=== PATIENT | female | born 1980 | race Hispanic/Latino ===

== ENCOUNTER 2018-03-13 21:14 | Emergency (ER) | payer OTHER ==
[2018-03-14 00:38] LABS: Absolute Lymphocytes (CBC) 3.6 K/uL (0.7-4.9); Absolute Monocytes 0.7 K/uL (0.1-1.3); Absolute Neutrophil 4.8 K/uL (1.8-8.0); Eosinophils % 1.2 % (0-4.4); Hematocrit 40.7 % (36.0-45.0); Lymphocytes % 38.8 % (15.3-44.8); MCH 30.6 pg (27.0-35.0); MCV 89.8 fL (80-100); MPV 7.7 fL (7.6-11.3); Monocytes % 7.2 % (3.3-12.3); RBC Red Blood Cell Count 4.53 M/uL (3.86-4.86)
[2018-03-14 00:42] LABS: Protime INR 1.03
[2018-03-14 00:46] LABS: Bicarbonate 27 mEq/L (21-31); Glucose Level 110 mg/dL (65-120); Potassium 3.6 mEq/L (3.6-5.0); Sodium Level 136 mEq/L (135-145)
[2018-03-14 00:52] LABS: ALT/SGPT 28 IU/L (10-60); AST/SGOT 24 IU/L (10-42); Albumin 4.5 g/dL (3.2-5.5); Alkaline Phosphatase 81 IU/L (42-121); BUN Blood Urea Nitrogen 7 mg/dL (6-20); Bilirubin Direct 0.1 mg/dL (0-0.2); Bilirubin Total 0.6 mg/dL (0.3-1.2); Magnesium 1.8 mg/dL (1.8-2.5); Protein, Total 8.2 g/dL (6.0-8.3)
[2018-03-14 00:59] LABS: Urine Blood 1+ (NEG); Urine Glucose NEGATIVE (NEG); Urine Protein NEGATIVE (NEG)
--- NOTE | 2018-03-14 02:40 | ER ---
Nurse's Notes [facility] Name: Sherron Arita Age: 37 yrs Sex: Female : 1980 Arrival Date: 03/13/2018 Time: 21:15 Bed 20 Private MD: Harsh Valera Diagnosis: Paresthesia of skin;Essential (primary) hypertension Presentation: 03/13 21:54 Presenting complaint: Patient states: she was having tingling to left arm and left side bb of face but now left arm is not feeling tingly instead feels "heavy" pt anchorer equal, face symmetrical, speech clear. Transition of care: patient was not received from another setting of care. Onset of symptoms was March 13, 2018. Initial Sepsis Screen: Does the patient meet any 2 criteria? No. Patient's initial sepsis screen is negative. Does the patient have a suspected source of infection? No. Patient's initial sepsis screen is negative. Care prior to arrival: None. 21:54 Method Of Arrival: Ambulatory bb 21:54 Acuity: KEESHA 3 bb Triage Assessment: 21:57 General: Appears in no apparent distress. Behavior is calm, cooperative. Pain: Denies bb pain. Neuro: Level of Consciousness is awake, alert, obeys commands, Oriented to person, place, time, situation, Electrolysis Operator are equal bilaterally Moves all extremities. Gait is steady, Speech is normal, Facial symmetry appears normal. 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 - Social history:: Smoking status: Patient/guardian denies using tobacco, Patient uses alcohol, but reports only rare drinking. Patient/guardian denies using street drugs. Screenin/19 00:46 Abuse screen: Denies threats or abuse. Denies injuries from another. Nutritional bs1 screening: No deficits noted. Tuberculosis screening: No symptoms or risk factors identified. Fall Risk None identified. Assessment: 03/13 22:30 General: Appears in no apparent distress. uncomfortable, Behavior is cooperative, bs1 anxious. General: Patient came in for left sided numbness on face/jaw, and left arm tingling, patient reports this happening in the past, at the time patient states "My symptoms improved now, I don't have any tingling or numbness in my arm, or jaw/face.". Pain: Denies pain. Neuro: Level of Consciousness is awake, alert, obeys commands, Oriented to person, place, time, situation, Appropriate for age Electrolysis Operator are equal bilaterally Moves all extremities. Gait is steady, Speech is normal, Facial symmetry appears normal, Pupils are PERRLA, Intact. Cardiovascular: Denies chest pain, palpitations, shortness of breath, Heart tones S1 S2 present Capillary refill < 3 seconds Patient's skin is warm and dry. Respiratory: Airway is patent Trachea midline Respiratory effort is even, unlabored, Respiratory pattern is regular, symmetrical, Breath sounds are clear bilaterally. GI: No deficits noted. No signs and/or symptoms were reported involving the gastrointestinal system. : No deficits noted. No signs and/or symptoms were reported regarding the genitourinary system. EENT: No deficits noted. Derm: Skin is intact, Skin is pink, warm \\T\\ dry. Musculoskeletal: Circulation, motion, and sensation intact. Capillary refill < 3 seconds, Range of motion: intact in all extremities. 23:30 Reassessment: Patient appears in no apparent distress at this time. No changes from bs1 previously documented assessment. Patient and/or family updated on plan of care and expected duration. Pain level reassessed. Patient is alert, oriented x 3, equal unlabored respirations, skin warm/dry/pink. Pending lab/CT results. 03/14 00:30 Reassessment: No changes from previously documented assessment. Patient and/or family bs1 updated on plan of care and expected duration. Pain level reassessed. Patient is alert, oriented x 3, equal unlabored respirations, skin warm/dry/pink. 01:44 Reassessment: Patient appears in no apparent distress at this time. Patient denies any bs1 numbness or tingling. Neuro checks wnl. 02:45 Reassessment: Patient appears in no apparent distress at this time. Patient and/or bs1 family updated on plan of care and expected duration. Pain level reassessed. Patient is alert, oriented x 3, equal unlabored respirations, skin warm/dry/pink. Patient to be discharged home. No further needs. Denies any further numbness or tingling. Patient states symptoms have improved. Vital Signs: 03/13 21:57 BP 156 / 96; Pulse 64; Resp 18 S; Temp 98.1(O); Pulse Ox 100% on R/A; Weight 99.34 kg bb (R); Height 5 ft. 2 in. (157.48 cm) (R); Pain 0/10; 22:57 BP 139 / 94; Pulse 66; Resp 17 S; Pulse Ox 98% on R/A; Pain 0/10; bs1 23:57 BP 137 / 87; Pulse 66; Resp 17 S; Pulse Ox 97% on R/A; Pain 0/10; bs1 03/14 00:57 BP 118 / 67; Pulse 67; Resp 17; Pulse Ox 99% on R/A; Pain 0/10; bs1 01:45 BP 122 / 70; Pulse 67; Resp 16; Pulse Ox 100% on R/A; Pain 0/10; bs1 02:45 BP 120 / 68; Pulse 73; Resp 23; Temp 98.0(O); Pulse Ox 100% on R/A; Pain 0/10; bs1 03/13 21:57 Body Mass Index 40.06 (99.34 kg, 157.48 cm) bb NIH Stroke Scale Scores: 02:33 NIHSS Score: 0 ED Course: 03/13 21:15 Patient arrived in ED. am2 21:16 Harsh Valera MD is Private Physician. am2 21:56 Triage completed. bb 21:57 Arm band placed on right wrist. Patient placed. bb 22:36 Khoi Alonso MD is Attending Physician. gs 22:44 Jasmyn Alfonso, RO is Primary Nurse. bs1 03/14 00:07 CT Head Brain wo Cont In Process Unspecified. EDMS 00:15 X-ray completed. Portable x-ray completed in exam room. Patient tolerated procedure bb2 well. 00:16 XRAY Chest (1 view) In Process Unspecified. EDMS 00:22 Inserted saline lock: 20 gauge in left antecubital area, using aseptic technique. bs1 00:47 Patient has correct armband on for positive identification. Bed in low position. Call bs1 light in reach. Side rails up X 1. Pulse ox on. NIBP on. 01:43 No provider procedures requiring assistance completed. bs1 02:39 Harsh Valera MD is Referral Physician. gs 02:49 IV discontinued, bleeding controlled, No redness/swelling at site. Pressure dressing bs1 applied. Administered Medications: No medications were administered Outcome: 02:39 Discharge ordered by . gs 02:49 Discharged to home ambulatory. bs1 02:49 Condition: stable 02:49 Discharge instructions given to patient, Instructed on discharge instructions, follow up and referral plans. Demonstrated understanding of instructions, follow-up care. 02:50 Patient left the ED. bs1 NIH Stroke Scale - NIH Stroke Score Date: 03/14/2018 Time: 02:33 Total Score = 0 1a. Level of Consciousness (LOC) - 0(Alert) 1b. Level of Consciousness (LOC) (Year \\T\\ Age) - 0(Both) 1c. LOC Commands (Open \\T\\ Closes Eyes/Medical Secretary) - 0(Both) 2. Best Gaze (Lateral Gaze Paresis) - 0(Normal) 3. Visual Field Loss - 0(No visual loss) 4. Facial Palsy - 0(Normal) 5a. Left Arm: Motor (10-second hold) - 0(No drift) 5b. Right Arm: Motor (10-second hold) - 0(No drift) 6a. Left Leg: Motor (5-second hold - always test supine) - 0(No drift) 6b. Right Leg: Motor (5-second hold - always test supine) - 0(No drift) 7. Limb Ataxia (finger/nose \\T\\ heel/robles - test with eyes open) - 0(Absent) 8. Sensory Loss (pinprick arms/legs/face) - 0(Normal) 9. Best Language: Aphasia (description/naming/reading) - 0(No aphasia) 10. Dysarthria (speech clarity - read or repeat words) - 0(Normal) 11. Extinction and Inattention (visual/tactile/auditory/spatial/personal) - 0(No abnormality) Initials: Signatures: Dispatcher [employer] EDMigdalia Reagan RN RN bb Moreno, Amanda am2 Starr, Gregory, MD MD gs Bock, Brittany bb2 Salazar, Brittany, RN RN bs1
--- NOTE | 2018-03-14 02:40 | EDPHYS ---
Physician Documentation [facility] Name: Sherron Arita Age: 37 yrs Sex: Female : 1980 Arrival Date: 03/13/2018 Time: 21:15 Bed 20 Private MD: Harsh Valera ED Physician Khoi Alonso HPI: 03/14 02:32 This 37 yrs old Female presents to ER via Ambulatory with complaints of Facial gs Swelling - Numbness, Numbness Of Arm - tingling. 02:32 The patient presents to the emergency department with paresthesias of the left upper gs extremity, left side of the face. Onset: The symptoms/episode began/occurred. 02:33 Onset: The symptoms/episode began/occurred 3 hour(s) ago. Associated signs and gs symptoms: Pertinent negatives: altered mental status, weakness. Severity of symptoms: At their worst the symptoms were moderate in the emergency department the symptoms have resolved and did so just prior to arrival. Current symptoms: Currently, the patient is not experiencing any symptoms. The patient has experienced similar episodes in the past, a few times, and the symptoms today are exactly the same. 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 - Social history:: Smoking status: Patient/guardian denies using tobacco, Patient uses alcohol, but reports only rare drinking. Patient/guardian denies using street drugs. ROS: 03/14 02:33 All other systems are negative. gs Exam: 02:33 Head/Face: Normocephalic, atraumatic. Eyes: Pupils equal round and reactive to light, gs extra-ocular motions intact. Lids and lashes normal. Conjunctiva and sclera are non-icteric and not injected. Cornea within normal limits. Periorbital areas with no swelling, redness, or edema. ENT: Nares patent. No nasal discharge, no septal abnormalities noted. Tympanic membranes are normal and external auditory canals are clear. Oropharynx with no redness, swelling, or masses, exudates, or evidence of obstruction, uvula midline. Mucous membranes moist. Neck: Trachea midline, no thyromegaly or masses palpated, and no cervical lymphadenopathy. Supple, full range of motion without nuchal rigidity, or vertebral point tenderness. No Meningismus. Chest/axilla: Normal chest wall appearance and motion. Nontender with no deformity. No lesions are appreciated. Cardiovascular: Regular rate and rhythm with a normal S1 and S2. No gallops, murmurs, or rubs. Normal PMI, no JVD. No pulse deficits. Respiratory: Lungs have equal breath sounds bilaterally, clear to auscultation and percussion. No rales, rhonchi or wheezes noted. No increased work of breathing, no retractions or nasal flaring. Abdomen/GI: Soft, non-tender, with normal bowel sounds. No distension or tympany. No guarding or rebound. No evidence of tenderness throughout. Back: No spinal tenderness. No costovertebral tenderness. Full range of motion. Skin: Warm, dry with normal turgor. Normal color with no rashes, no lesions, and no evidence of cellulitis. MS/ Extremity: Pulses equal, no cyanosis. Neurovascular intact. Full, normal range of motion. 02:33 Constitutional: The patient appears alert, awake. 02:33 Musculoskeletal/extremity: Circulation is intact in all extremities. 02:33 Neuro: Orientation: is normal, Mentation: is normal, Cranial nerves: CN II- XII are normal as tested, Cerebellar function: no acute changes, normal finger to nose testing, Motor: moves all fours, strength is 5/5 in all extremities, Sensation: no obvious gross deficits, Gait: is steady. 02:41 ECG was reviewed by the Attending Physician. Vital Signs: 03/13 21:57 BP 156 / 96; Pulse 64; Resp 18 S; Temp 98.1(O); Pulse Ox 100% on R/A; Weight 99.34 kg bb (R); Height 5 ft. 2 in. (157.48 cm) (R); Pain 0/10; 22:57 BP 139 / 94; Pulse 66; Resp 17 S; Pulse Ox 98% on R/A; Pain 0/10; bs1 23:57 BP 137 / 87; Pulse 66; Resp 17 S; Pulse Ox 97% on R/A; Pain 0/10; bs1 03/14 00:57 BP 118 / 67; Pulse 67; Resp 17; Pulse Ox 99% on R/A; Pain 0/10; bs1 01:45 BP 122 / 70; Pulse 67; Resp 16; Pulse Ox 100% on R/A; Pain 0/10; bs1 02:45 BP 120 / 68; Pulse 73; Resp 23; Temp 98.0(O); Pulse Ox 100% on R/A; Pain 0/10; bs1 03/13 21:57 Body Mass Index 40.06 (99.34 kg, 157.48 cm) bb NIH Stroke Scale Scores: 02:33 NIHSS Score: 0 gs MDM: 03/13 23:22 Patient medically screened. 03/14 02:33 Data reviewed: vital signs, nurses notes. Special discussion: OFFERED TRANSFER NO NEUROLOGY, PT STATES WILL SEE PCP TOMORROW AND GET MRI AND CAROTID DOPPLERS. ED course: DDX CVA,TIA, PARESTHESIA. 02:40 Counseling: I had a detailed discussion with the patient and/or guardian regarding: the presence of at least one elevated blood pressure reading (>120/80) during this emergency department visit. Special discussion: I have referred the patient to see his PCP for further evaluation of high blood pressure. 03/13 23:37 Order name: Basic Metabolic Panel; Complete Time: 02:19 03/13 23:37 Order name: CBC with Diff; Complete Time: 02:19 03/13 23:37 Order name: LFT's; Complete Time: 02:19 03/13 23:37 Order name: Magnesium; Complete Time: 02:19 03/13 23:37 Order name: PT-INR; Complete Time: 02:19 03/13 23:37 Order name: Troponin (emerg Dept Use Only); Complete Time: 02:19 03/13 23:37 Order name: XRAY Chest (1 view) 03/13 23:37 Order name: EKG; Complete Time: 23:38 03/13 23:37 Order name: Cardiac monitoring; Complete Time: 01:45 03/13 23:37 Order name: EKG - Nurse/Tech; Complete Time: 01:19 03/13 23:37 Order name: IV Saline Lock; Complete Time: 00:49 03/13 23:37 Order name: CT Head Brain wo Cont 03/14 00:50 Order name: Urine Dipstick--Ancillary (enter results); Complete Time: : 2 03/14 00:50 Order name: Urine --Ancillary (enter results); Complete Time: [facility] 03/13 23:37 Order name: Labs collected and sent; Complete Time: 00:49 03/13 23:37 Order name: O2 Per Protocol; Complete Time: : 03/13 23:37 Order name: O2 Sat Monitoring; Complete Time: : 03/13 23:37 Order name: Urine Dipstick-Ancillary (obtain specimen); Complete Time: : 03/13 23:37 Order name: Urine Test (obtain specimen); Complete Time: :03 EC:41 Rate is 66 beats/min. Rhythm is regular. [place] interval is normal. QRS interval is normal. gs T waves are Normal. No ST changes noted. Clinical impression: Normal ECG. Interpreted by me. Administered Medications: No medications were administered Disposition: 03/14/18 02:39 Discharged to Home. Impression: Paresthesia of skin, Essential (primary) hypertension. - Condition is Stable. - Discharge Instructions: Hypertension, Managing Your High Blood Pressure. - Medication Reconciliation Form, Thank You Letter, Antibiotic Education, Prescription Opioid Use form. - Follow up: Harsh Valera MD; When: Today. - Notes: NEED TO SEE PCP TODAY IF ANY ISSUES RETURN TO ED NIH Stroke Scale - NIH Stroke Score Date: 03/14/2018 Time: 02:33 Total Score = 0 1a. Level of Consciousness (LOC) - 0(Alert) 1b. Level of Consciousness (LOC) (Year \T\ Age) - 0(Both) 1c. LOC Commands (Open \T\ Closes Eyes/Collar Starcher) - 0(Both) 2. Best Gaze (Lateral Gaze Paresis) - 0(Normal) 3. Visual Field Loss - 0(No visual loss) 4. Facial Palsy - 0(Normal) 5a. Left Arm: Motor (10-second hold) - 0(No drift) 5b. Right Arm: Motor (10-second hold) - 0(No drift) 6a. Left Leg: Motor (5-second hold - always test supine) - 0(No drift) 6b. Right Leg: Motor (5-second hold - always test supine) - 0(No drift) 7. Limb Ataxia (finger/nose \T\ heel/robles - test with eyes open) - 0(Absent) 8. Sensory Loss (pinprick arms/legs/face) - 0(Normal) 9. Best Language: Aphasia (description/naming/reading) - 0(No aphasia) 10. Dysarthria (speech clarity - read or repeat words) - 0(Normal) 11. Extinction and Inattention (visual/tactile/auditory/spatial/personal) - 0(No abnormality) Initials: Signatures: Dispatcher [employer] Migdalia Akins RN RN Khoi Blanc MD MD gs Salazar, Brittany, RN RN bs1
--- NOTE | 2018-03-14 07:57 | RAD REPORT ---
EXAM DESCRIPTION: Edda Single View03/14/2018 12:16 am CLINICAL HISTORY: Chest pain COMPARISON: August 2017 FINDINGS: The lungs appear clear of acute infiltrate. The heart is normal size IMPRESSION: No acute abnormalities displayed
--- NOTE | 2018-03-14 08:56 | RAD REPORT ---
EXAM DESCRIPTION: CT - Head Brain Wo Cont - 03/14/2018 8:18 am CLINICAL HISTORY: Numbness left arm and face COMPARISON: None. TECHNIQUE: Computed axial tomography of the head was obtained. IV contrast was not requested. All CT scans are performed using dose optimization technique as appropriate and may include automated exposure control or mA/KV adjustment according to patient size. FINDINGS: An intracranial bleed is not seen . The ventricles are normal in caliber. No extra-axial fluid collection is noted. Fluid within the sinuses/ mastoids is not seen. IMPRESSION: No acute intracranial abnormality is seen. If patient's symptoms persist MRI of the bra in would be recommended.
--- NOTE | 2018-03-14 09:14 | EKG ---
Test Date: 2018-03-14 Test Time: 01:02:16 Promotions Executive Producer: HAMZAH MEASUREMENT RESULTS: Intervals: Rate: 66 [place]: 164 QRSD: 76 QT: 414 QTc: 434 Elmer: P: 30 [place]: 164 QRS: -1 T: 7 INTERPRETIVE STATEMENTS: Normal sinus rhythm Normal ECG Compared to ECG 09/14/2017 19:02:25 No significant changes Electronically Signed On 03-14-18 09:13:40 CDT by Blair Doherty
== END 2018-03-14 02:50 | disposition home or self-care (01) ==
LOC: ER 21:14
DX: I10 Essential (primary) hypertension (principal)
CPT/HCPCS: 36415; 70450; 71045; 80048; 80076; 81003; 81025; 83735; 84484; 85025; 85610; 93005; 99284

== ENCOUNTER 2018-08-20 17:02 | Emergency (ER) | payer OTHER ==
[2018-08-20 18:03] LABS: Absolute Lymphocytes (CBC) 2.8 K/uL (0.7-4.9); Absolute Monocytes 0.5 K/uL (0.1-1.3); Absolute Neutrophil 4.2 K/uL (1.8-8.0); MCV 91.8 fL (80-100); MPV 7.5 fL (7.6-11.3); Monocytes % 6.5 % (3.3-12.3); Protime INR 0.98; RBC Red Blood Cell Count 4.47 M/uL (3.86-4.86)
[2018-08-20 18:22] LABS: ALT/SGPT 26 U/L (12-78); AST/SGOT 20 U/L (15-37); Albumin 4.4 g/dL (3.4-5.0); Alkaline Phosphatase 109 U/L (45-117); BUN Blood Urea Nitrogen 6 mg/dL (7-18); Bicarbonate 28 mmol/L (21-32); Bilirubin Direct 0.2 mg/dL (0-0.2); Bilirubin Total 0.8 mg/dL (0.2-1.0); Glucose Level 94 mg/dL (74-106); Magnesium 2.2 mg/dL (1.8-2.4); NT PRO-BNP 28 pg/mL (<125); Potassium 3.8 mmol/L (3.5-5.1); Protein, Total 8.5 g/dL (6.4-8.2); Sodium Level 137 mmol/L (136-145); Troponin (Emerg Dept Use Only) < 0.02 ng/mL (0.0-0.045)
--- NOTE | 2018-08-20 18:23 | RAD REPORT ---
EXAM DESCRIPTION: CT - Head Brain Wo Cont - 08/20/2018 5:58 pm CLINICAL HISTORY: Left-sided facial numbness and tingling, left arm and leg numbness and tingling, f acial droop COMPARISON: February 2018 TECHNIQUE: Axial 5 mm thick images of the head were obtained without IV contrast. All CT scans are performed using dose optimization technique as appropriate and may include automated exposure control or mA/KV adjustment according to patient size. FINDINGS: No intracranial hemorrhage, mass, edema or shift of mid-line structures. No acute infarcti on changes seen. No abnormal extra-axial fluid collections. Ventricles are normal. Mastoid air cells and visualized portions of the paranasal sinuses are clear. No acute bony findings. No significant change from comparison. IMPRESSION: Negative non-contrast CT head examination.
--- NOTE | 2018-08-20 18:24 | RAD REPORT ---
EXAM DESCRIPTION: RAD - Chest Single View - 08/20/2018 5:53 pm CLINICAL HISTORY: Shortness of breath, left-sided weakness COMPARISON: March 14 TECHNIQUE: AP portable chest image was obtained 1750 hours . FINDINGS: Lungs are clear. Heart and vasculature are normal. No measurable pleural effusion and no p neumothorax. No gross bony abnormality seen. No acute aortic findings suspected. IMPRESSION: No acute cardiopulmonary process. No significant interval change.
[2018-08-20] MEDS ORDERED: ASPIRIN 81 MG CHEWABLE TABLET ONE (18:49)
--- NOTE | 2018-08-20 19:10 | RAD REPORT ---
EXAM DESCRIPTION: US - CP - 08/20/2018 6:24 pm CLINICAL HISTORY: Left-sided facial numbness, stroke-like symptoms COMPARISON: None. TECHNIQUE: Real-time sonographic evaluation of both carotid systems was performed. Grayscale and Dop pler interrogation was performed with waveform tracing bilaterally. FINDINGS: Normal high resistance waveforms are noted in both external carotid arteries. The common c arotid arteries and internal carotid arteries show normal low resistance waveforms. No significant plaque formation is seen. Peak systolic and end diastolic velocity values and the ICA/ CCA ratios are in the non-hemodynamically significant range. Antegrade flow seen in both vertebral arteries. Velocity values and ratios were recorded and are retained in the patient's imaging records. IMPRESSION: No significant atherosclerotic changes noted. No evidence of a hemodynamically significant stenosis.
--- NOTE | 2018-08-20 19:19 | ER ---
Nurse's Notes [facility] Name: Sherron Arita Age: 38 yrs Sex: Female : 1980 Arrival Date: 08/20/2018 Time: 17:03 Bed 26 Private MD: Harsh Valera Diagnosis: Paresthesia of skin-Left side of face Presentation: 08/20 17:09 Presenting complaint: Patient states: Numbness and tingling to left side of face, left hb arm, and left leg that started at 4pm today. 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 Transition of care: patient was not received from another setting of care. Onset of symptoms was August 20, 2018 at 16:00. Risk Assessment: Do you want to hurt yourself or someone else? Patient reports no desire to harm self or others. 17:09 Method Of Arrival: Ambulatory hb 17:09 Acuity: KEESHA 3 hb 17:39 Initial Sepsis Screen: Does the patient meet any 2 criteria? No. Patient's initial la1 sepsis screen is negative. Does the patient have a suspected source of infection? No. Patient's initial sepsis screen is negative. Care prior to arrival: None. Historical: - Allergies: 17:11 No Known Allergies; hb - PMHx: 17:11 None; hb - PSHx: 17:11 ; hb - Immunization history:: Adult Immunizations up to date. - Social history:: Smoking status: Patient/guardian denies using tobacco. - Ebola Screening: : No symptoms or risks identified at this time. Screenin:21 Abuse screen: Denies threats or abuse. Nutritional screening: No deficits noted. la1 Tuberculosis screening: No symptoms or risk factors identified. Fall Risk None identified. 17:39 The patient has not been NPO before screening. The patient is alert, able to follow la1 commands. The patient does not exhibit slurred or garbled speech The patient is not exhibiting difficulty speaking. The patient does not exhibit difficulty understanding words. The patient is able to swallow own secretions with no drooling or need for suction. Patient tolerated one teaspoon of water. No drooling, immediate coughing, gurgling, or clearing of the throat was noted. The patient tolerated 90mL of water. No drooling, immediate coughing, gurgling, or clearing of the throat was noted. The patient passed the bedside swallow screening. Oral medications may be given as ordered. Contact Physician for further diet orders. Provider notified of bedside swallow screening results: Derek MCALLISTER. Assessment: 17:22 General: Appears in no apparent distress. Behavior is calm, cooperative. Pain: Denies la1 pain. Neuro: Level of Consciousness is awake, alert, obeys commands, Oriented to person, place, time, situation. Neuro: Lineman are equal bilaterally weak bilaterally Speech is normal, Facial symmetry appears normal, Pupils are PERRLA. Cardiovascular: Capillary refill < 3 seconds. Respiratory: Airway is patent Respiratory effort is even, unlabored, Respiratory pattern is regular, symmetrical. GI: No signs and/or symptoms were reported involving the gastrointestinal system. : No signs and/or symptoms were reported regarding the genitourinary system. 18:54 Reassessment: Pt refused MRI. la1 19:30 Reassessment: Patient appears in no apparent distress at this time. Patient is alert, aa1 oriented x 3, equal unlabored respirations, skin warm/dry/pink. Discussed d/c \T\ f/u instructions with pt \T\ family; denies questions or concerns at this time Patient states feeling better. Vital Signs: 17:07 BP 160 / 83; Pulse 73; Resp 14; Temp 97.8; Pulse Ox 100% on R/A; Pain 0/10; hb 18:58 BP 128 / 81; Pulse 73; Resp 18; Pulse Ox 100% on R/A; mg2 NIH Stroke Scale Scores: 17:21 NIHSS Score: 0 la1 ED Course: 17:03 Patient arrived in ED. sb2 17:04 Harsh Valera MD is Private Physician. sb2 17:11 Triage completed. hb 17:11 Arm band placed on right wrist. hb 17:15 Yury Brooks, RO is Primary Nurse. la1 17:22 Derek Perez PA is PHCP. cp 17:22 Khoi Alonso MD is Attending Physician. cp 17:22 Bed in low position. Call light in reach. la1 17:53 EKG done, by life science technician. reviewed by Derek MCALLISTER. sm3 17:54 XRAY Chest (1 view) In Process Unspecified. EDMS 17:56 Inserted saline lock: 20 gauge in right antecubital area, using aseptic technique. la1 Blood collected. 17:59 CT Head Brain wo Cont In Process Unspecified. EDMS 18:24 US Carotid Artery Bilateral In Process Unspecified. EDMS 19:17 Gregory Keane MD is Referral Physician. cp 19:30 No provider procedures requiring assistance completed. IV discontinued, intact, aa1 bleeding controlled, No redness/swelling at site. Pressure dressing applied. Administered Medications: 18:45 Drug: Aspirin Chewable Tablet 324 mg Route: PO; mg2 19:30 Follow up: Response: No adverse reaction aa1 Outcome: 19:18 Discharge ordered by MD. cp 19:30 Discharged to home ambulatory, with family. aa1 19:30 Condition: good 19:30 Discharge instructions given to patient, Instructed on discharge instructions, follow up and referral plans. medication usage, Demonstrated understanding of instructions, follow-up care, medications. 19:32 Patient left the ED. aa1 NIH Stroke Scale - NIH Stroke Score Date: 08/20/2018 Time: 17:21 Total Score = 0 1a. Level of Consciousness (LOC) - 0(Alert) 1b. Level of Consciousness (LOC) (Year \T\ Age) - 0(Both) 1c. LOC Commands (Open \T\ Closes Eyes/Scientist Propagator) - 0(Both) 2. Best Gaze (Lateral Gaze Paresis) - 0(Normal) 3. Visual Field Loss - 0(No visual loss) 4. Facial Palsy - 0(Normal) 5a. Left Arm: Motor (10-second hold) - 0(No drift) 5b. Right Arm: Motor (10-second hold) - 0(No drift) 6a. Left Leg: Motor (5-second hold - always test supine) - 0(No drift) 6b. Right Leg: Motor (5-second hold - always test supine) - 0(No drift) 7. Limb Ataxia (finger/nose \T\ heel/robles - test with eyes open) - 0(Absent) 8. Sensory Loss (pinprick arms/legs/face) - 0(Normal) 9. Best Language: Aphasia (description/naming/reading) - 0(No aphasia) 10. Dysarthria (speech clarity - read or repeat words) - 0(Normal) 11. Extinction and Inattention (visual/tactile/auditory/spatial/personal) - 0(No abnormality) Initials: la1 Signatures: Dispatcher [employer] Celine Martínez RN RN aa1 Yury Brooks RN RN la1 Derek Perez PA PA cp Baxter, Heather, RN RN Ginna Velazquez 2 Arthur Mac RN RN [facility] Mariana Antony 3
--- NOTE | 2018-08-20 19:19 | EDPHYS ---
Physician Documentation [facility] Name: Sherron Arita Age: 38 yrs Sex: Female : 1980 Arrival Date: 08/20/2018 Time: 17:03 Bed 26 Private MD: Harsh Valera ED Physician Khoi Alonso HPI: 08/20 17:35 This 38 yrs old Female presents to ER via Ambulatory with complaints of cp Numbness Of Face, TINGLING. 17:35 The patient's problem is reported as paresthesias, in left side of face. Onset: The cp symptoms/episode began/occurred today, at 16:00. Duration: The episode is continuous. Associated signs and symptoms: Pertinent negatives: blurred vision, chest pain, headache, palpitations, seizure, weakness. Severity of symptoms: in the emergency department the symptoms have improved moderately. 17:35 Patient's baseline: Neuro: alert and fully oriented, Motor: no deficits, Ambulation: cp walks without assistance, Speech: normal. Historical: - Allergies: 17:11 No Known Allergies; hb - PMHx: 17:11 None; hb - PSHx: 17:11 ; hb - Immunization history:: Adult Immunizations up to date. - Social history:: Smoking status: Patient/guardian denies using tobacco. - Ebola Screening: : No symptoms or risks identified at this time. ROS: 17:40 Constitutional: Negative for body aches, chills, fever, poor PO intake. cp 17:40 Eyes: Negative for injury, pain, redness, and discharge. cp 17:40 ENT: Negative for drainage from ear(s), ear pain, sore throat, difficulty swallowing, difficulty handling secretions. 17:40 Cardiovascular: Negative for chest pain, edema, palpitations. 17:40 Respiratory: Negative for cough, shortness of breath, wheezing. 17:40 Abdomen/GI: Negative for abdominal pain, nausea, vomiting, and diarrhea, black/tarry stool, rectal bleeding. 17:40 Back: Negative for pain at rest, pain with movement. 17:40 : Negative for urinary symptoms. 17:40 Skin: Negative for cellulitis, rash. 17:40 Neuro: Positive for tingling, of the left side of face, Negative for altered mental status, headache, syncope, near syncope, visual changes, weakness. 17:40 All other systems are negative. Exam: 17:44 ECG was reviewed by the Attending Physician. cp 17:47 Constitutional: The patient appears in no acute distress, alert, awake, cp non-diaphoretic, non-toxic, well developed, well nourished. 17:47 Chest/axilla: Normal chest wall appearance and motion. Nontender with no deformity. cp No lesions are appreciated. 17:47 Head/face: Exam is negative for obvious evidence of injury or deformity, erythema, swelling, tenderness. 17:47 Eyes: Periorbital structures: appear normal, Pupils: equal, round, and reactive to light and accomodation, Extraocular movements: intact throughout, Conjunctiva: normal, no exudate, no injection, Sclera: no appreciated abnormality, Lids and lashes: appear normal, bilaterally. 17:47 ENT: External ear(s): are unremarkable, Ear canal(s): are normal, clear, TM's: bulging, is not appreciated, bilaterally, dullness, bilaterally, erythema, is not appreciated, bilaterally, Nose: is normal, Mouth: Lips: moist, Oral mucosa: pink and intact, moist, Posterior pharynx: is normal, airway is patent, no erythema, no exudate, Voice: is normal. 17:47 Neck: External neck: is normal, ROM/movement: is normal, is supple, without pain, no range of motions limitations, no meningismus, no nuchal rigidity. 17:47 Cardiovascular: Rate: normal, Rhythm: regular, Pulses: Pulses are 2+ in right radial artery and left radial artery. Edema: is not appreciated, JVD: is not appreciated. 17:47 Respiratory: the patient does not display signs of respiratory distress, Respirations: normal, no use of accessory muscles, no retractions, no splinting, no tachypnea, labored breathing, is not present, Breath sounds: are clear throughout, no decreased breath sounds, no stridor, no wheezing. 17:47 Abdomen/GI: Inspection: abdomen appears normal, Bowel sounds: active, all quadrants, Palpation: abdomen is soft and non-tender, in all quadrants. 17:47 Skin: cellulitis, is not appreciated, no rash present. 17:47 Neuro: Orientation: to person, place \T\ time. Mentation: lucid, able to follow commands, Cranial nerves: CN II- XII are normal as tested, visual samson are intact. Cerebellar function: Romberg testing is negative, normal finger to nose testing, heel to robles testing is normal, Motor: moves all fours, strength is normal, Sensation: tingling, that is mild, of the left side of face. 18:33 Radiologist reports: no acute findings cp Vital Signs: 17:07 BP 160 / 83; Pulse 73; Resp 14; Temp 97.8; Pulse Ox 100% on R/A; Pain 0/10; hb 18:58 BP 128 / 81; Pulse 73; Resp 18; Pulse Ox 100% on R/A; mg2 NIH Stroke Scale Scores: 17:21 NIHSS Score: 0 la1 MDM: 17:31 Patient medically screened. cp 17:50 Differential diagnosis: CVA, TIA, metabolic disorder, drug effects, electrolyte cp abnormality. 18:30 Refusal of service: The patient/guardian displays adequate decision making capability cp and despite a detailed discussion of alternatives, benefits, risks, and consequences refuses: MRI of brain. 19:15 ED course: VSS. Discussed results of labs, negative head CT and carotid US. No cp neurology available for consult and patient declines transfer to another facility for continued care. Will discharge to home for continued monitoring. Recommend baby ASA daily and f/u with neurology. 19:17 Data reviewed: vital signs, nurses notes, lab test result(s), EKG, radiologic studies, cp CT scan, ultrasound, and as a result, I will discharge patient. 19:17 Counseling: I had a detailed discussion with the patient and/or guardian regarding: the cp historical points, exam findings, and any diagnostic results supporting the discharge/admit diagnosis, the presence of at least one elevated blood pressure reading (>120/80) during this emergency department visit, lab results, radiology results, the need for outpatient follow up, a family practitioner, a neurologist, to return to the emergency department if symptoms worsen or persist or if there are any questions or concerns that arise at home. 08/20 17:33 Order name: Basic Metabolic Panel; Complete Time: 18:25 cp 08/20 17:33 Order name: CBC with Diff; Complete Time: 18:25 cp 08/20 17:33 Order name: LFT's; Complete Time: 18:25 cp 08/20 17:33 Order name: Magnesium; Complete Time: 18:25 cp 08/20 17:33 Order name: NT PRO-BNP; Complete Time: 18:25 08/20 17:33 Order name: PT-INR; Complete Time: 18:25 08/20 17:33 Order name: CT Head Brain wo Cont; Complete Time: 18:25 08/20 18:25 Interpretation: Report reviewed. 08/20 17:33 Order name: Troponin (emerg Dept Use Only); Complete Time: 18:25 08/20 17:33 Order name: XRAY Chest (1 view); Complete Time: 18:25 08/20 17:33 Order name: EKG; Complete Time: 17:34 08/20 17:33 Order name: Cardiac monitoring; Complete Time: 18:45 08/20 17:36 Order name: US Carotid Artery Bilateral; Complete Time: 19:12 08/20 17:33 Order name: EKG - Nurse/Tech; Complete Time: 17:39 08/20 17:33 Order name: IV Saline Lock; Complete Time: 18:10 08/20 17:33 Order name: Labs collected and sent; Complete Time: 18:10 08/20 17:33 Order name: O2 Per Protocol; Complete Time: 17:39 cp 08/20 17:33 Order name: O2 Sat Monitoring; Complete Time: 17:39 cp EC:44 Rate is 66 beats/min. Rhythm is regular. OH interval is normal. QRS interval is normal. cp QT interval is normal. T waves are Flattened in lead aVF. Interpreted by me. Reviewed by me. Administered Medications: 18:45 Drug: Aspirin Chewable Tablet 324 mg Route: PO; mg2 19:30 Follow up: Response: No adverse reaction aa1 Disposition: 08/20/18 19:18 Discharged to Home. Impression: Paresthesia of skin - Left side of face. - Condition is Stable. - Discharge Instructions: Paresthesia, Aspirin and Your Heart. - Medication Reconciliation Form, Thank You Letter, Antibiotic Education, Prescription Opioid Use form. - Follow up: Gregory Keane MD; When: 1 - 2 days; Reason: Recheck today's complaints. - Problem is new. - Symptoms have improved. - Notes: take 1 baby aspirin daily NIH Stroke Scale - NIH Stroke Score Date: 08/20/2018 Time: 17:21 Total Score = 0 1a. Level of Consciousness (LOC) - 0(Alert) 1b. Level of Consciousness (LOC) (Year \T\ Age) - 0(Both) 1c. LOC Commands (Open \T\ Closes Eyes/Change Manager) - 0(Both) 2. Best Gaze (Lateral Gaze Paresis) - 0(Normal) 3. Visual Field Loss - 0(No visual loss) 4. Facial Palsy - 0(Normal) 5a. Left Arm: Motor (10-second hold) - 0(No drift) 5b. Right Arm: Motor (10-second hold) - 0(No drift) 6a. Left Leg: Motor (5-second hold - always test supine) - 0(No drift) 6b. Right Leg: Motor (5-second hold - always test supine) - 0(No drift) 7. Limb Ataxia (finger/nose \T\ heel/robles - test with eyes open) - 0(Absent) 8. Sensory Loss (pinprick arms/legs/face) - 0(Normal) 9. Best Language: Aphasia (description/naming/reading) - 0(No aphasia) 10. Dysarthria (speech clarity - read or repeat words) - 0(Normal) 11. Extinction and Inattention (visual/tactile/auditory/spatial/personal) - 0(No abnormality) Initials: la1 Signatures: Dispatcher [employer] Celine Martínez RN RN aa1 Derek Perez PA PA cp Keisha Rose RN RN Arthur Mac RN RN mg2 Corrections: (The following items were deleted from the chart) 19:13 17:36 MR STROKE PROTOCOL+MRI.RAD.BRZ ordered. [facility] 19:32 19:18 08/20/2018 19:18 Discharged to Home. Impression: Paresthesia of skin - aa1 Left side of face. Condition is Stable. Forms are Medication Reconciliation Form, Thank You Letter, Antibiotic Education, Prescription Opioid Use. Follow up: Gregory Keane; When: 1 - 2 days; Reason: Recheck today's complaints. Problem is new. Symptoms have improved. cp
--- NOTE | 2018-08-21 09:46 | EKG ---
Test Date: 2018-08-20 Test Time: 17:42:08 X Ray Technologist: HAI MEASUREMENT RESULTS: Intervals: Rate: 66 MA: 160 QRSD: 76 QT: 412 QTc: 431 [place]: P: 27 MA: 160 QRS: 1 T: 6 INTERPRETIVE STATEMENTS: Normal sinus rhythm Normal ECG Compared to ECG 03/14/2018 01:02:16 No significant changes Electronically Signed On 08-21-18 09:45:37 CDT by Matias Byrnes
== END 2018-08-20 19:32 | disposition home or self-care (01) ==
LOC: ER 17:02
DX: R20.2 Paresthesia of skin (principal)
CPT/HCPCS: 36415; 70450; 71045; 80048; 80076; 83735; 83880; 84484; 85025; 85610; 93005; 93880; 99284

== ENCOUNTER 2019-07-31 15:50 | Emergency (ER) | payer OTHER ==
[2019-07-31 17:18] LABS: Basophils % 0.9 % (0-1.3); Hematocrit 39.4 % (36.0-45.0); Lymphocytes % 31.7 % (15.3-44.8); MPV 7.6 fL (7.6-11.3); RBC Red Blood Cell Count 4.34 M/uL (3.86-4.86)
--- NOTE | 2019-07-31 17:32 | RAD REPORT ---
EXAM DESCRIPTION: RAD - Chest Single View - 07/31/2019 5:23 pm CLINICAL HISTORY: hypertension Chest pain. COMPARISON: Chest Single View dated 08/20/2018; Chest Single View dated 03/14/2018; Chest Single View dated 09/14/2017 FINDINGS: Portable technique limits examination quality. The lungs are grossly clear. The heart is normal in size. No displaced fractures. IMPRESSION: No acute intrathoracic process suspected.
[2019-07-31 17:34] LABS: BUN Blood Urea Nitrogen 8 mg/dL (7-18); Bicarbonate 27 mmol/L (21-32); Glucose Level 94 mg/dL (74-106); Potassium 3.8 mmol/L (3.5-5.1); Sodium Level 139 mmol/L (136-145)
--- NOTE | 2019-07-31 17:46 | ER ---
Nurse's Notes [facility] Name: Sherron Arita Age: 38 yrs Sex: Female : 1980 Arrival Date: 07/31/2019 Time: 15:53 Bed 15 Private MD: Harsh Valera Diagnosis: Hypertension Presentation: 07/31 16:08 Presenting complaint: Patient states: my blood pressure has been up lately, it was high ch on Sunday. today i have felt tired, numbness in my tongue, my shins feel hot and tingling, and sometimes my vision is spotty. yesterday I went home early because I was not feeling well. at [facility] the nurse said it was 172/98. Transition of care: patient was not received from another setting of care. Onset of symptoms was July 31, 2019 at 15:20. Risk Assessment: Do you want to hurt yourself or someone else? Patient reports no desire to harm self or others. Initial Sepsis Screen: Does the patient meet any 2 criteria? No. Patient's initial sepsis screen is negative. Does the patient have a suspected source of infection? No. Patient's initial sepsis screen is negative. Care prior to arrival: None. 16:08 Method Of Arrival: Ambulatory 16:08 Acuity: KEESHA 3 ch Triage Assessment: 16:13 General: Appears in no apparent distress. comfortable, Behavior is calm, cooperative, ch appropriate for age. Pain: Denies pain. Neuro: Reports spotty vision, hotness and fatigue. tingling burning in shins.. TECHNOLOGY LEAD: 18:05 LMP N/A - control method jl7 Historical: - Allergies: 16:13 No Known Allergies; ch - Home Meds: 16:13 clonazepam 0.25 mg Oral TbDL 1 tab as needed [Active]; anti inflammatory [Active]; ch diclofenac oral oral [Active]; - PMHx: 16:13 Anxiety; - PSHx: 16:13 ; - Immunization history:: Adult Immunizations up to date, Last tetanus immunization: up to date Flu vaccine is not up to date. - Social history:: Smoking status: Patient/guardian denies using tobacco, Patient/guardian denies using alcohol, street drugs. - Ebola Screening: : Patient negative for fever greater than or equal to 101.5 degrees Fahrenheit, and additional compatible Ebola Virus Disease symptoms Patient denies exposure to infectious person Patient denies travel to an Ebola-affected area in the 21 days before illness onset No symptoms or risks identified at this time. - Family history:: not pertinent. - Hospitalizations: : No recent hospitalization is reported. Screenin:36 Abuse screen: Denies threats or abuse. Denies injuries from another. Nutritional jl7 screening: No deficits noted. Tuberculosis screening: No symptoms or risk factors identified. Fall Risk IV access (20 points). Total Callahan Fall Scale indicates No Risk (0-24 pts). Assessment: 16:40 General: Appears in no apparent distress. uncomfortable, Behavior is calm, cooperative, jl7 appropriate for age. Pain: Denies pain. Neuro: Level of Consciousness is awake, alert, obeys commands, Oriented to person, place, time, situation. Cardiovascular: Patient's skin is warm and dry. Respiratory: Airway is patent Respiratory effort is even, unlabored, Respiratory pattern is regular, symmetrical. Derm: Skin is pink, warm \T\ dry. 17:40 Reassessment: Patient appears in no apparent distress at this time. Patient and/or jl7 family updated on plan of care and expected duration. Pain level reassessed. Patient is alert, oriented x 3, equal unlabored respirations, skin warm/dry/pink. Patient denies pain at this time. Vital Signs: 16:13 BP 143 / 89; Pulse 77; Resp 19; Temp 98.3; Pulse Ox 99% on R/A; Weight 101.6 kg; Height 5 ft. 2 in. (157.48 cm); Pain 0/10; 17:36 BP 128 / 74; Pulse 77; Resp 16 S; Pulse Ox 97% on R/A; jl7 16:13 Body Mass Index 40.97 (101.60 kg, 157.48 cm) ED Course: 15:53 Patient arrived in ED. rg4 15:53 Harsh Valera MD is Private Physician. rg4 16:10 Triage completed. ch 16:13 Arm band placed on right wrist. Patient placed in an exam room, on a stretcher. ch 16:25 Daniele Owen MD is Attending Physician. rn 16:39 Tonio Botello RN is Primary Nurse. jl7 17:00 Initial lab(s) drawn, by sd, sent to lab. Inserted saline lock: 20 gauge in right jl7 antecubital area, using aseptic technique. Blood collected. 17:01 EKG done, by optomechanical technician. reviewed by Daniele Owen MD. 3 17:26 XRAY Chest (1 view) In Process Unspecified. EDMS 17:36 Patient has correct armband on for positive identification. Placed in gown. Bed in low jl7 position. Call light in reach. Side rails up X 1. Pulse ox on. NIBP on. 18:05 No provider procedures requiring assistance completed. IV discontinued, intact, jl7 bleeding controlled, No redness/swelling at site. Pressure dressing applied. Administered Medications: No medications were administered Outcome: 17:45 Discharge ordered by . rn 18:05 Discharged to home ambulatory. jl7 18:05 Condition: stable 18:05 Discharge instructions given to patient, Instructed on discharge instructions, follow up and referral plans. Demonstrated understanding of instructions, follow-up care. 18:06 Patient left the ED. jl7 Signatures: Dispatcher [employer] EDOK Sherron Amador, RN Daniele Sarmiento ch, MD MD rn Garcia, Rubi rg4 Tonio Botello RN RN jl7 Mariana Antony 3
--- NOTE | 2019-07-31 17:47 | EDPHYS ---
Physician Documentation [facility] Name: Sherron Arita Age: 38 yrs Sex: Female : 1980 Arrival Date: 07/31/2019 Time: 15:53 Bed 15 Private MD: Harsh Valera ED Physician Daniele Owen HPI: 07/31 16:44 This 38 yrs old Female presents to ER via Ambulatory with complaints of High rn Blood Pressure. 16:44 The patient has elevated blood pressure and discovered this work. Onset: The rn symptoms/episode began/occurred at an unknown time. Modifying factors:. Severity of symptoms: At its worst the blood pressure was 170 mm Hg. The patient has experienced similar episodes in the past. Reports has had high blood pressure "for some time" able to manage with diet and weight loss, but then gained weight back, never on meds, reports has been high recently, had some chest discomfort yesterday, but none today, + flushing feeling and posterior headache, that is also resolved today. No fever/cough/sob/abd pain/vomiting. No focal neuro complaints. States sees PCP Sunday but hasn't had time to do her normal bloodwork before visit, hoping she can do it here.. 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 - Social history:: Smoking status: Patient/guardian denies using tobacco, Patient/guardian denies using alcohol, street drugs. - Ebola Screening: : Patient negative for fever greater than or equal to 101.5 degrees Fahrenheit, and additional compatible Ebola Virus Disease symptoms Patient denies exposure to infectious person Patient denies travel to an Ebola-affected area in the 21 days before illness onset No symptoms or risks identified at this time. - Family history:: not pertinent. - Hospitalizations: : No recent hospitalization is reported. ROS: 16:46 Constitutional: Negative for fever, chills, and weight loss, Eyes: Negative for injury, rn pain, redness, and discharge, Neck: Negative for injury, pain, and swelling, Cardiovascular: Negative for palpitations, and edema, Respiratory: Negative for shortness of breath, cough, wheezing, and pleuritic chest pain, Abdomen/GI: Negative for abdominal pain, nausea, vomiting, diarrhea, and constipation, MS/Extremity: Negative for injury and deformity, Skin: Negative for injury, rash, and discoloration, Neuro: Negative for weakness, numbness, tingling, and seizure. Exam: 16:46 Constitutional: This is a well developed, well nourished patient who is awake, alert, rn and in no acute distress. Head/Face: Normocephalic, atraumatic. Eyes: Pupils equal round and reactive to light, extra-ocular motions intact. Lids and lashes normal. Conjunctiva and sclera are non-icteric and not injected. Cornea within normal limits. Periorbital areas with no swelling, redness, or edema. Neck: Trachea midline, no thyromegaly or masses palpated, and no cervical lymphadenopathy. Supple, full range of motion without nuchal rigidity, or vertebral point tenderness. No Meningismus. Cardiovascular: Regular rate and rhythm. No pulse deficits. Respiratory: Lungs have equal breath sounds bilaterally, clear to auscultation. No increased work of breathing, no retractions or nasal flaring. Abdomen/GI: soft, non-tender MS/ Extremity: Pulses equal, no cyanosis. Neurovascular intact. Full, normal range of motion. Equal circumference. Neuro: Awake and alert, GCS 15, oriented to person, place, time, and situation. Cranial nerves II-XII grossly intact. Motor strength 5/5 in all extremities. Sensory grossly intact. Cerebellar exam normal. 17:18 ECG was reviewed by the Attending Physician. rn Vital Signs: 16:13 BP 143 / 89; Pulse 77; Resp 19; Temp 98.3; Pulse Ox 99% on R/A; Weight 101.6 kg; Height ch 5 ft. 2 in. (157.48 cm); Pain 0/10; 17:36 BP 128 / 74; Pulse 77; Resp 16 S; Pulse Ox 97% on R/A; jl7 16:13 Body Mass Index 40.97 (101.60 kg, 157.48 cm) ch MDM: 16:25 Patient medically screened. rn 17:43 Differential diagnosis: hypertensive crisis, Malignant HTN. Data reviewed: vital signs, rn nurses notes, lab test result(s), EKG, radiologic studies, plain films, and as a result, I will discharge patient. Counseling: I had a detailed discussion with the patient and/or guardian regarding: the historical points, exam findings, and any diagnostic results supporting the discharge/admit diagnosis, lab results, radiology results, the need for outpatient follow up, to return to the emergency department if symptoms worsen or persist or if there are any questions or concerns that arise at home. Response to treatment: the patient's symptoms have markedly improved after treatment, and as a result, I will discharge patient. Special discussion: I have referred the patient to see his PCP for further evaluation of high blood pressure. I discussed with the patient/guardian in detail that at this point there is no indication for admission to the hospital. It is understood, however, that if the symptoms persist or worsen the patient needs to return immediately for re-evaluation. Based on the history and exam findings, there is no indication for further emergent testing or inpatient evaluation. I discussed with the patient/guardian the need to see the primary care provider for further evaluation of the symptoms. ED course: BP improved to 128/74, normal neuro exam, neg labs, normal ecg and cxr. Recommend pcp f/u which she has appt on Sunday, and BP diary for data collection for pcp. . 17:45 Test interpretation: by ED physician or midlevel provider: ECG, plain radiologic rn studies, CXR neg for pneumothorax or acute infiltrate. 07/31 16:42 Order name: CBC with Diff; Complete Time: 17:25 rn 07/31 16:42 Order name: Basic Metabolic Panel; Complete Time: 17:43 rn 07/31 16:42 Order name: IV Start; Complete Time: 17:16 rn 07/31 16:42 Order name: EKG; Complete Time: 16:44 rn 07/31 16:42 Order name: XRAY Chest (1 view); Complete Time: 17:46 rn 07/31 16:46 Order name: Troponin (emerg Dept Use Only); Complete Time: 17:43 rn 07/31 16:42 Order name: EKG - Nurse/Tech; Complete Time: 17:16 rn EC:18 Rate is 67 beats/min. Rhythm is regular. QRS [place] is Normal. [place] interval is normal. QRS rn interval is normal. QT interval is normal. No Q waves. T waves are Normal. No ST changes noted. Clinical impression: Normal ECG. Interpreted by me. Reviewed by me. Administered Medications: No medications were administered Disposition: 07/31/19 17:45 Discharged to Home. Impression: Hypertension. - Condition is Stable. - Discharge Instructions: Hypertension, Managing Your Hypertension. - Medication Reconciliation Form, Thank You Letter, Antibiotic Education, Prescription Opioid Use form. - Follow up: Private Physician; When: As needed; Reason: Recheck today's complaints, Re-evaluation by your physician. - Problem is an ongoing problem. - Symptoms have improved. Signatures: Dispatcher [employer] EDSherron Lazaro, RN RN Daniele Wilks MD MD rn Leal, Jahala, RN RN jl7 Corrections: (The following items were deleted from the chart) 18:06 17:45 07/31/2019 17:45 Discharged to Home. Impression: Hypertension. Condition is jl7 Stable. Forms are Medication Reconciliation Form, Thank You Letter, Antibiotic Education, Prescription Opioid Use. Follow up: Private Physician; When: As needed; Reason: Recheck today's complaints, Re-evaluation by your physician. Problem is an ongoing problem. Symptoms have improved. rn
--- NOTE | 2019-08-01 08:24 | EKG ---
Test Date: 2019-07-31 Test Time: 16:56:38 Strategic Communications Manager: HAI MEASUREMENT RESULTS: Intervals: Rate: 67 NV: 158 QRSD: 76 QT: 408 QTc: 431 [place]: P: 24 NV: 158 QRS: -6 T: 2 INTERPRETIVE STATEMENTS: Normal sinus rhythm Normal ECG Compared to ECG 08/20/2018 17:42:08 No significant changes Electronically Signed On 08-01-19 08:24:13 CDT by Matias Byrnes
== END 2019-07-31 18:06 | disposition home or self-care (01) ==
LOC: ER 15:50
DX: I10 Essential (primary) hypertension (principal); F41.9 Anxiety disorder, unspecified
CPT/HCPCS: 36415; 71045; 80048; 84484; 85025; 93005; 99284

== ENCOUNTER 2019-12-03 20:15 | Emergency (ER) | payer OTHER ==
--- NOTE | 2019-12-03 20:46 | RAD REPORT ---
EXAM DESCRIPTION: Edda Single View12/03/2019 8:38 pm CLINICAL HISTORY: Chest pain COMPARISON: July 2019 FINDINGS: The lungs appear clear of acute infiltrate. The heart is normal size IMPRESSION: No acute abnormalities displayed
[2019-12-03 21:12] LABS: Protime INR 0.96
[2019-12-03 21:33] LABS: Absolute Lymphocytes (CBC) 2.7 K/uL (0.7-4.9); Hematocrit 37.7 % (36.0-45.0); Lymphocytes % 30.4 % (15.3-44.8); MPV 7.7 fL (7.6-11.3); RBC Red Blood Cell Count 4.17 M/uL (3.86-4.86)
[2019-12-03 21:51] LABS: ALT/SGPT 30 U/L (12-78); AST/SGOT 21 U/L (15-37); Albumin 4.2 g/dL (3.4-5.0); Alkaline Phosphatase 97 U/L (45-117); BUN Blood Urea Nitrogen 9 mg/dL (7-18); Bicarbonate 26 mmol/L (21-32); Bilirubin Direct 0.1 mg/dL (0-0.2); Bilirubin Total 0.4 mg/dL (0.2-1.0); Glucose Level 115 mg/dL (74-106); Magnesium 1.9 mg/dL (1.8-2.4); NT PRO-BNP 18 pg/mL (<125); Potassium 3.6 mmol/L (3.5-5.1); Protein, Total 7.8 g/dL (6.4-8.2); Sodium Level 137 mmol/L (136-145); Troponin (Emerg Dept Use Only) < 0.02 ng/mL (0.0-0.045)
[2019-12-03] MEDS ORDERED: MAGNE/ALUM HYDROXD 30 ML UCUP ONE (22:09)
[2019-12-03] MEDS ORDERED: LIDOCAINE VISCOUS 2% SOLN 15 ML UDC ONE (22:09)
--- NOTE | 2019-12-03 22:10 | ER ---
Nurse's Notes [facility] Name: Sherron Arita Age: 39 yrs Sex: Female : 1980 Arrival Date: 12/03/2019 Time: 20:17 Bed 17 Private MD: Diagnosis: Chest pain, unspecified Presentation: 12/03 20:29 Presenting complaint: Patient states: Intermittent chest pain for the past 2 days. aj1 Patient reports that it feels like pressure. States "I've had panic attacks before and this isn't like that " Denies cough or fever. Transition of care: patient was not received from another setting of care. Onset of symptoms was 2019. Risk Assessment: Do you want to hurt yourself or someone else? Patient reports no desire to harm self or others. Initial Sepsis Screen: Does the patient meet any 2 criteria? No. Patient's initial sepsis screen is negative. Does the patient have a suspected source of infection? No. Patient's initial sepsis screen is negative. Care prior to arrival: None. 20:29 Method Of Arrival: Ambulatory aj1 20:29 Acuity: KEESHA 3 aj1 Triage Assessment: 20:32 General: Appears in no apparent distress. comfortable, Behavior is calm, cooperative, aj1 appropriate for age. Pain: Pain currently is 4 out of 10 on a pain scale. Neuro: Level of Consciousness is awake, alert, obeys commands, Oriented to person, place, time, situation. Cardiovascular: Reports chest pain, Patient's skin is warm and dry. Respiratory: Airway is patent Respiratory effort is even, unlabored, Respiratory pattern is regular, symmetrical. 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 - Social history:: Smoking status: Patient/guardian denies using tobacco. - Ebola Screening: : Patient denies travel to an Ebola-affected area in the 21 days before illness onset. Screenin:21 Abuse screen: Denies threats or abuse. Nutritional screening: No deficits noted. jd3 Tuberculosis screening: No symptoms or risk factors identified. Fall Risk IV access (20 points). Ambulatory Aid- None/Bed Rest/Nurse Assist (0 pts). Gait- Normal/Bed Rest/Wheelchair (0 pts) Mental Status- Oriented to own ability (0 pts). Total Callahan Fall Scale indicates No Risk (0-24 pts). Assessment: 21:20 General: Appears in no apparent distress. uncomfortable, Behavior is calm, cooperative, jd3 appropriate for age. Pain: Complains of pain in chest Pain radiates to back Quality of pain is described as aching, Pain began suddenly, Is intermittent. Neuro: Level of Consciousness is awake, alert, obeys commands, Oriented to person, place, time, situation. Cardiovascular: Reports chest pain, Capillary refill < 3 seconds Patient's skin is warm and dry. Rhythm is regular. Respiratory: Airway is patent Respiratory effort is even, unlabored, Respiratory pattern is regular, symmetrical, Denies cough, shortness of breath. GI: No signs and/or symptoms were reported involving the gastrointestinal system. : No signs and/or symptoms were reported regarding the genitourinary system. EENT: No signs and/or symptoms were reported regarding the EENT system. Derm: Skin is intact, Skin is dry, Skin is normal, Skin temperature is warm. Musculoskeletal: Circulation, motion, and sensation intact. Range of motion: intact in all extremities. 22:22 Reassessment: Patient appears in no apparent distress at this time. Patient and/or jd3 family updated on plan of care and expected duration. Pain level reassessed. Patient is alert, oriented x 3, equal unlabored respirations, skin warm/dry/pink. reported understanding of discharge instructions, even and steady gait upon discharge. Patient states feeling better. Vital Signs: 20:32 BP 153 / 91; Pulse 82; Resp 18; Temp 98.9; Pulse Ox 97% on R/A; Weight 102.06 kg (R); aj1 Height 5 ft. 2 in. (157.48 cm) (R); Pain 4/10; 21:23 Pulse 73; Resp 17 S; Pulse Ox 97% on R/A; jd3 21:25 Pulse 75; Resp 17 S; Pulse Ox 96% on R/A; jd3 20:32 Body Mass Index 41.15 (102.06 kg, 157.48 cm) aj1 ED Course: 20:17 Patient arrived in ED. cf2 20:25 Mickail, Ze, PA is PHCP. jmm 20:25 Daniele Owen MD is Attending Physician. jmm 20:31 Triage completed. aj1 20:32 Arm band placed on Patient placed in an exam room. aj1 20:36 XRAY Chest (1 view) In Process Unspecified. EDMS 20:40 Tera Nina, RN is Primary Nurse. jd3 21:05 Inserted saline lock: 20 gauge in right antecubital area, using aseptic technique. jd3 Blood collected. placed by [employer]. 21:21 Patient has correct armband on for positive identification. Bed in low position. Call jd3 light in reach. Side rails up X 1. Adult w/ patient. 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 Pulse ox on. NIBP on. 21:22 Patient maintains SpO2 saturation greater than 95% on room air. jd3 22:09 Blair Doherty MD is Referral Physician. jm 22:22 No provider procedures requiring assistance completed. IV discontinued, intact, jd3 bleeding controlled, No redness/swelling at site. Pressure dressing applied. Administered Medications: 22:15 Drug: GI Cocktail without - (Maalox Suspension 30 ml, Lidocaine Liquid 2 % 15 jd3 ml) Route: PO; 22:23 Follow up: Response: Medication administered at discharge. jd3 Outcome: 22:09 Discharge ordered by . jm 22:22 Discharged to home ambulatory, with family. jd3 22:22 Condition: stable 22:22 Discharge instructions given to patient, family, Instructed on discharge instructions, follow up and referral plans. Demonstrated understanding of instructions, follow-up care. 22:23 Patient left the ED. jd3 Signatures: Dispatcher [employer] EDMS Ayse Griffin, RN RN aj1 Ze Capps PA PA [facility] Tera Nina, RO RN jd3 Alicia Vitale cf2
--- NOTE | 2019-12-03 22:10 | EDPHYS ---
Physician Documentation [facility] Name: Sherron Arita Age: 39 yrs Sex: Female : 1980 Arrival Date: 12/03/2019 Time: 20:17 Bed 17 Private MD: ED Physician Daniele Owen HPI: 12/03 20:27 This 39 yrs old Female presents to ER via Ambulatory with complaints of Chest jmm Pain. 20:27 The patient or guardian reports chest pain that is located primarily in the substernal [facility] area. Onset: gradually, 2 day(s) ago. The pain does not radiate. Associated signs and symptoms: Pertinent positives: recent travel, Pertinent negatives: cough, shortness of breath. The chest pain is described as aching, a pressure. Duration: The patient or guardian reports multiple episodes, that are intermittent. Modifying factors: The symptoms are alleviated by nothing. the symptoms are aggravated by nothing. The patient has not experienced similar symptoms in the past. 20:27 Patient denies history of CAD, htn, hlp, denies family history of SD, denies tobacco [facility] use. . 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 - Social history:: Smoking status: Patient/guardian denies using tobacco. - Ebola Screening: : Patient denies travel to an Ebola-affected area in the 21 days before illness onset. ROS: 20:27 Constitutional: Negative for fever, chills, and weight loss. jmm 20:27 Abdomen/GI: Negative for abdominal pain, nausea, vomiting, diarrhea, and constipation, Back: Negative for injury and pain, MS/Extremity: Negative for injury and deformity, Neuro: Negative for headache, weakness, numbness, tingling, and seizure. 20:27 Cardiovascular: Positive for chest pain. 20:27 Respiratory: Negative for shortness of breath. 20:27 All other systems are negative. Exam: 20:27 Constitutional: This is a well developed, well nourished patient who is awake, alert, jmm and in no acute distress. Head/Face: atraumatic. Eyes: EOMI, no conjunctival erythema appreciated ENT: Moist Mucus Membranes Neck: Trachea midline, Supple Chest/axilla: Normal chest wall appearance and motion. 20:27 Cardiovascular: Rate: normal, Rhythm: regular, Pulses: no pulse deficits are appreciated. 20:27 Respiratory: the patient does not display signs of respiratory distress, Respirations: normal, Breath sounds: are clear throughout. 20:27 Abdomen/GI: Inspection: abdomen appears normal, Bowel sounds: normal, Palpation: abdomen is soft and non-tender, in all quadrants. 20:27 Back: ROM is normal. 20:27 Musculoskeletal/extremity: ROM: intact in all extremities. 20:27 Skin: Appearance: Color: normal in color. 20:27 Neuro: Orientation: is normal, Mentation: is normal, Memory: is normal. 20:27 Psych: Behavior/mood is pleasant, cooperative. Vital Signs: 20:32 BP 153 / 91; Pulse 82; Resp 18; Temp 98.9; Pulse Ox 97% on R/A; Weight 102.06 kg (R); aj1 Height 5 ft. 2 in. (157.48 cm) (R); Pain 4/10; 21:23 Pulse 73; Resp 17 S; Pulse Ox 97% on R/A; jd3 21:25 Pulse 75; Resp 17 S; Pulse Ox 96% on R/A; jd3 20:32 Body Mass Index 41.15 (102.06 kg, 157.48 cm) aj1 MDM: 20:35 Patient medically screened. [facility] 22:08 The patient was not given aspirin in the Emergency Department. Data reviewed: vital [facility] signs, nurses notes, lab test result(s), EKG, radiologic studies, plain films. Counseling: I had a detailed discussion with the patient and/or guardian regarding: the historical points, exam findings, and any diagnostic results supporting the discharge/admit diagnosis, the presence of at least one elevated blood pressure reading (>120/80) during this emergency department visit, lab results, radiology results, the need for outpatient follow up, to return to the emergency department if symptoms worsen or persist or if there are any questions or concerns that arise at home. ED course: HEART SCORE = 2. D-DIMER NEGATIVE. Patient advised to follow up with cardiology for further evaluation. patient otherwise given strict return precautions. patient understood and agrees with the plan of care. . 12/03 20:27 Order name: Basic Metabolic Panel; Complete Time: 21:51 [facility] 12/03 20:27 Order name: CBC with Diff; Complete Time: 21:40 [facility] 12/03 20:27 Order name: LFT's; Complete Time: 21:51 [facility] 12/03 20:27 Order name: Magnesium; Complete Time: 21:51 [facility] 12/03 20:27 Order name: NT PRO-BNP; Complete Time: 21:51 [facility] 12/03 20:27 Order name: PT-INR; Complete Time: 21:30 [facility] 12/03 20:27 Order name: Troponin (emerg Dept Use Only); Complete Time: 21:51 [facility] 12/03 20:27 Order name: XRAY Chest (1 view); Complete Time: 20:48 [facility] 12/03 20:27 Order name: Cardiac monitoring; Complete Time: 20:40 [facility] 12/03 20:27 Order name: EKG - Nurse/Tech; Complete Time: 21:19 [facility] 12/03 21:04 Order name: D-Dimer; Complete Time: 21:30 [facility] 12/03 20:27 Order name: IV Saline Lock; Complete Time: 21:06 [facility] 12/03 20:27 Order name: Labs collected and sent; Complete Time: 21:06 [facility] 12/03 20:27 Order name: O2 Per Protocol; Complete Time: 20:40 [facility] 12/03 20:27 Order name: O2 Sat Monitoring; Complete Time: 20:40 jmm Administered Medications: 22:15 Drug: GI Cocktail without - (Maalox Suspension 30 ml, Lidocaine Liquid 2 % 15 jd3 ml) Route: PO; 22:23 Follow up: Response: Medication administered at discharge. jd3 Disposition: 12/04 00:30 Co-signature as Attending Physician, Daniele Owen MD. rn Disposition: 12/03/19 22:09 Discharged to Home. Impression: Chest pain, unspecified. - Condition is Stable. - Discharge Instructions: Nonspecific Chest Pain. - Medication Reconciliation Form, Thank You Letter, Antibiotic Education, Prescription Opioid Use form. - Follow up: Blair Doherty MD; When: 2 - 3 days; Reason: Recheck today's complaints, Continuance of care, Re-evaluation by your physician. Signatures: Dispatcher [employer] EDSD Ayse Griffin RN RN aj1 Ze Capps PA PA jmm Nieto, Roman, MD MD rn Davies, Jonathon, RN RN jd3 Corrections: (The following items were deleted from the chart) 12/03 21:04 20:49 D-DIMER+COAG.LAB.BRZ ordered. [facility] 22:23 22:09 12/03/2019 22:09 Discharged to Home. Impression: Chest pain, unspecified. jd3 Condition is Stable. Forms are Medication Reconciliation Form, Thank You Letter, Antibiotic Education, Prescription Opioid Use. Follow up: Blair Doherty; When: 2 - 3 days; Reason: Recheck today's complaints, Continuance of care, Re-evaluation by your physician. nola
[2019-12-03 22:34] VITALS: BP 153/91; TEMP 98.9; O2SAT 96
== END 2019-12-03 22:23 | disposition home or self-care (01) ==
LOC: ER 20:15
DX: R07.9 Chest pain, unspecified (principal); F41.9 Anxiety disorder, unspecified
CPT/HCPCS: 36415; 71045; 80048; 80076; 83735; 83880; 84484; 85025; 85379; 85610; 99285

== ENCOUNTER 2020-04-01 20:08 | Emergency (ER) | payer OTHER ==
--- NOTE | 2020-04-01 21:54 | EDPHYS ---
Physician Documentation [facility] Name: Sherron Arita Age: 39 yrs Sex: Female : 1980 Arrival Date: 04/01/2020 Time: 20:14 Bed 18 Private MD: ED Physician Daniele Owen HPI: 04/01 21:49 This 39 yrs old Female presents to ER via Ambulatory with complaints of rn SWOLLEN FACE. 21:49 Reports at home, eating, noticed left cheek became visibly swollen, confirmed rn slightly swollen, unsure if allergic reaction, then began to have anxiety attack, resolved after taking benzo, now swelling has gone away. Left face still doesn't feel normal, but no pain. Feels better now. . Onset: The symptoms/episode began/occurred just prior to arrival. Severity of symptoms: At their worst the symptoms were mild in the emergency department the symptoms have improved. The patient has not experienced similar symptoms in the past. The patient has not recently seen a physician. 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 - Social history:: Smoking status: unknown Patient uses alcohol, weekly. Patient/guardian denies using street drugs. - Family history:: not pertinent. - Hospitalizations: : No recent hospitalization is reported. ROS: 21:49 Constitutional: Negative for fever, chills, and weight loss, Eyes: Negative for injury, rn pain, redness, and discharge, ENT: Negative for injury, pain, and discharge, Cardiovascular: Negative for chest pain, palpitations, and edema, Respiratory: Negative for shortness of breath, cough, wheezing, and pleuritic chest pain, Abdomen/GI: Negative for abdominal pain, nausea, vomiting, diarrhea, and constipation, MS/Extremity: Negative for injury and deformity, Skin: Negative for injury, rash, and discoloration, Neuro: Negative for headache, weakness, numbness, tingling, and seizure. Exam: 21:49 Constitutional: This is a well developed, well nourished patient who is awake, alert, rn and in no acute distress. Head/Face: Normocephalic, atraumatic. Eyes: Pupils equal round and reactive to light, extra-ocular motions intact. Lids and lashes normal. Conjunctiva and sclera are non-icteric and not injected. Cornea within normal limits. Periorbital areas with no swelling, redness, or edema. ENT: Normal dentition, no fluctuance/swelling of oral cavity or face noted. Cardiovascular: Regular rate and rhythm. No pulse deficits. Skin: Warm, dry with normal turgor. Normal color with no rashes, no lesions, and no evidence of cellulitis. MS/ Extremity: Pulses equal, no cyanosis. Neurovascular intact. Full, normal range of motion. Equal circumference. Neuro: Awake and alert, GCS 15, oriented to person, place, time, and situation. Cranial nerves II-XII grossly intact. Motor strength 5/5 in all extremities. Sensory grossly intact. Cerebellar exam normal. Normal gait. Vital Signs: 20:55 BP 169 / 89; Pulse 77; Resp 19; Temp 98.2; Pulse Ox 100% ; Weight 108.86 kg; Height 5 rr5 ft. 2 in. (157.48 cm); Pain 0/10; 22:30 BP 133 / 91; Pulse 85; Resp 18; Pulse Ox 99% on R/A; wh 20:55 Body Mass Index 43.90 (108.86 kg, 157.48 cm) rr5 MDM: 21:33 Patient medically screened. rn 21:49 Differential Diagnosis localized allergic reaction, subjective swelling, paresthesia. rn Data reviewed: vital signs, nurses notes, and as a result, I will discharge patient. Counseling: I had a detailed discussion with the patient and/or guardian regarding: the historical points, exam findings, and any diagnostic results supporting the discharge/admit diagnosis, the need for outpatient follow up, to return to the emergency department if symptoms worsen or persist or if there are any questions or concerns that arise at home. Special discussion: I discussed with the patient/guardian in detail that at this point there is no indication for admission to the hospital. It is understood, however, that if the symptoms persist or worsen the patient needs to return immediately for re-evaluation. ED course: Had long discussion with patient, given now resolved without treatment and visibly swollen at home, unlikely stroke or infection. Possibly just subjective vs local allergic reaction, will dc home with steroids in case allergic reaction. . Administered Medications: 22:18 Drug: predniSONE 60 mg Route: PO; 22:38 Follow up: Response: No adverse reaction Disposition: 04/01/20 21:53 Discharged to Home. Impression: Transient swelling of left face. - Condition is Stable. - Prescriptions for Prednisone 20 mg Oral Tablet - take 3 tablet by ORAL route once daily for 5 days; 15 tablet. - Medication Reconciliation Form, Thank You Letter, Antibiotic Education, Prescription Opioid Use form. - Follow up: Private Physician; When: As needed; Reason: Recheck today's complaints, Re-evaluation by your physician. - Problem is new. - Symptoms have improved. Signatures: Daniele Owen MD MD rn Habalo, Quan Juwan Li RN RN rr5 Corrections: (The following items were deleted from the chart) 22:34 21:53 04/01/2020 21:53 Discharged to Home. Impression: Transient swelling of left face. Condition is Stable. Forms are Medication Reconciliation Form, Thank You Letter, Antibiotic Education, Prescription Opioid Use. Follow up: Private Physician; When: As needed; Reason: Recheck today's complaints, Re-evaluation by your physician. Problem is new. Symptoms have improved. rn
--- NOTE | 2020-04-01 21:54 | ER ---
Nurse's Notes [facility] Name: Sherron Arita Age: 39 yrs Sex: Female : 1980 Arrival Date: 04/01/2020 Time: 20:14 Bed 18 Private MD: Diagnosis: Transient swelling of left face Presentation: 04/01 20:55 Chief complaint: Patient states: I noticed my left face is swollen it feel so weird rr5 tingling feeling on my left side of the body.started an hour ago. denies any trauma, difficulty of breathing. 20:55 Coronavirus screen: Proceed with normal triage. Ebola Screen: Patient negative for rr5 fever greater than or equal to 101.5 degrees Fahrenheit, and additional compatible Ebola Virus Disease symptoms Patient denies exposure to infectious person. Patient denies travel to an Ebola-affected area in the 21 days before illness onset. Initial Sepsis Screen: Does the patient meet any 2 criteria? No. Patient's initial sepsis screen is negative. Does the patient have a suspected source of infection? No. Patient's initial sepsis screen is negative. Risk Assessment: Do you want to hurt yourself or someone else? Patient reports no desire to harm self or others. Onset of symptoms was April 01, 2020. 20:55 Method Of Arrival: Ambulatory rr5 20:55 Acuity: KEESHA 3 rr5 Triage Assessment: 21:40 General: Appears in no apparent distress. comfortable, Behavior is calm, cooperative, wh appropriate for age. 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 - Social history:: Smoking status: unknown Patient uses alcohol, weekly. Patient/guardian denies using street drugs. - Family history:: not pertinent. - Hospitalizations: : No recent hospitalization is reported. Screenin:00 VAN Screening: Arm Drift: Patient shows no arm weakness. Patient is VAN negative. rr5 Visual Disturbance: No visual disturbance noted. Aphasia: No aphasia noted. Neglect: No neglect noted. 21:40 Abuse screen: Denies threats or abuse. Denies injuries from another. Nutritional wh screening: No deficits noted. Tuberculosis screening: No symptoms or risk factors identified. Fall Risk None identified. Assessment: 21:40 General: Appears in no apparent distress. Behavior is calm, cooperative, appropriate wh for age. Pain: Denies pain. Neuro: Level of Consciousness is awake, alert, obeys commands, Oriented to person, place, time, situation, Appropriate for age Construction Controller are equal bilaterally Moves all extremities. Gait is steady, Speech is normal, Facial symmetry appears normal, Pupils are PERRLA, Reports tingling. Cardiovascular: Capillary refill < 3 seconds. Respiratory: Airway is patent Respiratory effort is even, unlabored, Respiratory pattern is regular, symmetrical. GI: Abdomen is flat, non-distended. : No signs and/or symptoms were reported regarding the genitourinary system. EENT: No signs and/or symptoms were reported regarding the EENT system. Derm: Skin is intact, is healthy with good turgor, Skin is pink, warm \T\ dry. normal. Musculoskeletal: Circulation, motion, and sensation intact. 22:30 Reassessment: Patient appears in no apparent distress at this time. No changes from previously documented assessment. Patient and/or family updated on plan of care and expected duration. Pain level reassessed. Patient is alert, oriented x 3, equal unlabored respirations, skin warm/dry/pink. Vital Signs: 20:55 BP 169 / 89; Pulse 77; Resp 19; Temp 98.2; Pulse Ox 100% ; Weight 108.86 kg; Height 5 rr5 ft. 2 in. (157.48 cm); Pain 0/10; 22:30 BP 133 / 91; Pulse 85; Resp 18; Pulse Ox 99% on R/A; wh 20:55 Body Mass Index 43.90 (108.86 kg, 157.48 cm) rr5 ED Course: 20:14 Patient arrived in ED. bp1 21:02 Triage completed. rr5 21:03 Arm band placed on left wrist. rr5 21:33 Daniele Owen MD is Attending Physician. rn 21:40 Patient has correct armband on for positive identification. Bed in low position. Call wh light in reach. Side rails up X 1. Pulse ox on. NIBP on. 22:18 Quan Nichols is Primary Nurse. 22:37 No provider procedures requiring assistance completed. Patient did not have IV access during this emergency room visit. Administered Medications: 22:18 Drug: predniSONE 60 mg Route: PO; 22:38 Follow up: Response: No adverse reaction Outcome: 21:53 Discharge ordered by . rn 22:34 Patient left the ED. 22:37 Discharged to home ambulatory. 22:37 Condition: stable 22:37 Discharge instructions given to patient, Instructed on discharge instructions, follow up and referral plans. medication usage, POC Demonstrated understanding of instructions, follow-up care, medications, POC Prescriptions given X 1. Signatures: Daniele Owen MD MD rn Habalo, Winsy Juwan Li RN RN rr5 Jasmyn Hardy bp1
[2020-04-01] MEDS ORDERED: predniSONE 20 MG TAB ONE (22:19)
== END 2020-04-01 22:34 | disposition home or self-care (01) ==
LOC: ER 20:08
DX: R22.9 Localized swelling, mass and lump, unspecified (principal); F41.9 Anxiety disorder, unspecified
CPT/HCPCS: 99283; J7512

== ENCOUNTER 2023-08-14 00:36 | Emergency (ER) | payer BC ==
--- OUTSIDE RECORDS SUMMARY | 2023-08-14 00:43 | XMS REPORT | Continuity of Care Document ---
:1980 Author Organization [facility] t Address [address] [place] [address] Care Team Providers Name Role Phone SUMA ALICEA JR Primary Care Physician Unavailable RADIOLOGY Attending Clinician Unavailable Radiology Attending Clinician Unavailable Doctor Unassigned, [place] Attending Clinician Unavailable AMBCRISTIAN Attending Clinician Unavailable SUMA ALICEA JR Admitting Clinician Unavailable YANY Admitting Clinician Unavailable Payers Payer Name Policy Type Policy Number Effective Date Expiration Date [id number] 2022 00:00:00 OUT OF STATE [employer] TRS CARE [id number] 2015 00:00:00 Problems Condition Condition Condition Status Onset Resolution Last Treating Co mments Source Name Details Category Date Date Treatment Clinician Date No known No known Disease Unive rs active active ity of problems problems [facility] Allergies, Adverse Reactions, Alerts Allergy Allergy Status Severity Reaction(s) Onset Inactive Treating Comm ents Source Name Type Date Date Clinician NO KNOWN Drug Active Univers ALLERGIE Class ity of S [facility] Social History Social Habit Start Date Stop Date Quantity Comments Source Exposure to 2023-04-14 2023-04-24 Not sure [facility] SARS-CoV-2 (event) 00:00:00 11:59:00 Medica l Branch Sex Assigned At [birth year] [facility] [place] 00:00:00 00:00:00 Medical Branch Smoking Status Start Date Stop Date Source Tobacco smoking consumption [facility] [place] [facility] Branch Medications Ordered Filled Start Stop Current Ordering Indication Dosage Frequency Signature Comments Components Source Medication Medication Date Date Medication? Clinician (SIG) Name Name No known 2015-11 No Univers medications 0-19 ity of 22:10: [place] [address] Medical Branch No known 2015-11 No Univers medications 0-19 ity of 22:10: [place] [address] Medical Branch No known No Univers medications [facility] [place] [facility] No known No [facility] medications [facility] [place] [facility] No known No [facility] medications [facility] [place] [facility] [place] Procedures Procedure Date / Time Performing Clinician Source Performed ASSIGNMENT OF BENEFITS 2023-04-24 16:55:29 [facility] [facility] CONSENT/REFUSAL FOR 2022-03-30 18:48:20 [facility] [place] Medical Branch ASSIGNMENT OF BENEFITS 2022-03-30 18:48:09 Doctor Unassigned, Un [facility] [place] Medical Branch BI ULTRASOUND BREAST 2021-03-15 19:40:09 Requisition, Paper [facility] LIMITED RIGHT Medical Branch BI DIAGNOSTIC 2021-03-15 19:15:03 Requisition, Paper [facility] TOMOSYNTHESIS RIGHT Medical Bran [facility] PATIENT FINANCIAL 2020-12-08 18:33:52 Doctor Unassigned, [facility] POLICY [place] [facility] NO SHOW OR MISSED 2020-12-08 18:33:37 Doctor Unassigned, [facility] APPOINTMENT POLICY [place] [facility]NOWLEDG[facility] NO SHOW OR MISSED 2020-12-08 18:33:25 Doctor Unassigned, [facility] APPOINTMENT POLICY [place] Medical Branc h ACKNOWLEDGEMENT CONSENT/REFUSAL FOR 2020-12-08 18:33:12 Doctor Unassigned, [facility] DIAGNOSIS AND TREATMENT [place] [facility] Medical Branch ASSIGNMENT OF BENEFITS 2020-12-08 18:32:58 Doctor Unassigned, Un [facility] [place] [facility] Medical Branch Encounters Start End Encounter Admission Attending Care Care Encounter Source Date/Time Date/Time Type Type Clinicians Facility Department ID 2023-04-24 2023-04-24 Outpatient R RADIOLOGY [facility] [id number] Univers 11:59:38 23:59:00 [facility] [place] [facility] 2023-04-24 2023-04-24 Hospital Radiology [facility] [id number] Univers 11:59:38 23:59:00 Encounter [place] [id number] ity of [place] [id number] [id number] 800 Branch 2023-04-24 2023-04-24 Orders Doctor DONALDO [id number] Univers 00:00:00 00:00:00 Only Unassigned, [place] [id number] ity of [facility] [id number] [facility] 009 Branch 2022-06-22 2022-06-22 Outpatient [facility] [id number] [place] 00:00:00 00:00:00 ADOLFO [id number] da [facility] Program 2022-03-30 2022-03-30 Outpatient R RADIOLOGY [facility] [id number] Univers 13:52:56 23:59:00 ity of [facility] 2022-03-30 2022-03-30 [facility] Radiology [facility] [id number] Univers 13:52:56 23:59:00 Encounter [place] [id number] ity of [place] [id number] [facility] [id number] [facility] [address] [place] 2022-03-30 2022-03-30 Orders Doctor DONALDO [id number] Univers 00:00:00 00:00:00 Only Unassigned, PRAMOD [id number] ity of [facility] [id number] [facility] 009 Branch 2022-03-16 2022-03-16 Outpatient R RADIOLOGY [facility] [id number] Univers 00:00:00 00:00:00 ity of [facility] 2021-03-15 2021-03-15 [facility] Radiology [facility] [id number] Univers 13:13:45 23:59:00 Encounter [place] [id number] ity of [place] [id number] [facility] [id number] [facility] 806 Branch 2021-03-15 2021-03-15 [facility] Radiology [facility] [id number] Univers 13:00:00 13:12:00 Encounter [place] [id number] ity [facility] [id number] [facility] [id number] [facility] 800 Branch 2021-03-15 2021-03-15 Outpatient R RADIOLOGY [facility] RAD [id number] Univers 00:00:00 00:00:00 ity of [facility] 2020-12-08 2020-12-08 [facility] Radiology [facility] [id number] Univers 12:32:10 23:59:00 Encounter [place] [id number] ity [facility] [id number] [facility] [id number] [facility] 800 Branch 2020-12-08 2020-12-08 Outpatient R RADIOLOGY [facility] [id number] Univers 00:00:00 00:00:00 ity [facility] Results Test Description Test Time Test Comments Results Result Sour e Comments BI ULTRASOUND 2021-02-25 Examination:BI Univers ity of BREAST LIMITED 0 DIAGNOSTIC [facility] RIGHT 19:52:44 TOMOSYNTHESIS Branch RIGHTBI ULTRASOUND BREAST LIMITED RIGHT History:Patient is 40 year old and is seen for: ?Right -- ?9 mm x 5 mm focal asymmetry seen in the upper outer quadrant of the right breast in the middle depth, 9 cm from the nipple. . Computer-aided detection (CAD) utilized. Comparisons: 12/08/2020 BI SCREENING MAMMOGRAM BILATERAL Findings:BI DIAGNOSTIC TOMOSYNTHESIS RIGHTThe right breast has scattered areas of fibroglandular density. There is a subcentimeter in the outer central breast, middle deptH, 9 cm from the nipple, best seen on RCC 24/67, RSCC 27/59, RSML 29/70. BI ULTRASOUND BREAST LIMITED RIGHTTargeted ultrasound demonstrates a simple cyst at the site of the mammographic area of concern at 9 o'clock at a distance of 9 cm from the nipple.Ultrasound of the axilla demonstrates morphologically normal lymph nodes. Impression:No evidence of malignancy. Recommendation:Silvana monaco mammographic follow-up - Right These findings and recommendations were discussed in detail with the patient at the time of this exam. BI-RADS Category: Right 2 - Benign BI DIAGNOSTIC 2021-02-25 Examination:BI Univers ity of TOMOSYNTHESIS 0 DIAGNOSTIC [facility] RIGHT 19:52:41 TOMOSYNTHESIS Branch RIGHTBI ULTRASOUND BREAST LIMITED RIGHT History:Patient is 40 year old and is seen for: ?Right -- ?9 mm x 5 mm focal asymmetry seen in the upper outer quadrant of the right breast in the middle depth, 9 cm from the nipple. . Computer-aided detection (CAD) utilized. Comparisons: 12/08/2020 BI SCREENING MAMMOGRAM BILATERAL Findings:BI DIAGNOSTIC TOMOSYNTHESIS RIGHTThe right breast has scattered areas of fibroglandular density. There is a subcentimeter in the outer central breast, middle deptH, 9 cm from the nipple, best seen on RCC 24/67, RSCC 27/59, RSML 29/70. BI ULTRASOUND BREAST LIMITED RIGHTTargeted ultrasound demonstrates a simple cyst at the site of the mammographic area of concern at 9 o'clock at a distance of 9 cm from the nipple.Ultrasound of the axilla demonstrates morphologically normal lymph nodes. Impression:No evidence of malignancy. Recommendation:Silvana al mammographic follow-up - Right These findings and recommendations were discussed in detail with the patient at the time of this exam. BI-RADS Category: Right 2 - Benign
[2023-08-14 01:39] LABS: Specific Gravity > 1.030 (1.005-1.030)
[2023-08-14 01:41] LABS: Specific Gravity > 1.030 (1.005-1.030); Urine Bacteria 20-50 /HPF (<20); Urine Bilirubin NEGATIVE (Negative); Urine Blood 2+ (Negative); Urine Clarity Turbid (Clear); Urine Color Light-Yellow (Yellow); Urine Glucose NEGATIVE (Negative); Urine Mucus 1+ /HPF (None Seen); Urine Protein TRACE (Negative); Urine RBC 21-50 /HPF (None Seen); Urine Urobilinogen Normal (Normal); Urine pH 5.5 (5.0-7.0)
[2023-08-14 01:41] LABS: Absolute Lymphocytes (CBC) 3.4 K/uL (0.7-4.9); Hematocrit 37.3 % (36.0-45.0); Lymphocytes % 41.4 % (15.3-44.8); MPV 7.5 fL (7.6-11.3); Platelets 317 thou/uL (152-406); RBC Red Blood Cell Count 4.05 M/uL (3.86-4.86)
[2023-08-14 01:49] LABS: SARS-CoV-2 Antigen Rapid Res Negative (Negative)
[2023-08-14 02:00] LABS: Albumin 3.7 g/dL (3.4-5.0); Bilirubin Total 0.4 mg/dL (0.2-1.0); C-Reactive Protein 3.08 mg/L (<3.00); Potassium 3.5 mEq/L (3.5-5.1); Protein, Total 7.2 g/dL (6.4-8.2); Troponin High Sensitivity 4.9 pg/mL (<58.9)
[2023-08-14] MEDS ORDERED: KETOROLAC 30 MG/ML INJ ONE (02:21)
[2023-08-14] MEDS ORDERED: NA CHLORIDE 0.9% 0 ML ONE (03:17)
[2023-08-14] MEDS ORDERED: NA CHLORIDE 0.9% 1,000 ML ONE (03:31)
--- NOTE | 2023-08-14 05:18 | ER ---
Nurse's Notes [facility] Name: Sherron Arita Age: 43 yrs Sex: Female : 1980 Arrival Date: 08/14/2023 Time: 00:36 Bed 13 Private MD: Harsh Valera Diagnosis: Chest pain, unspecified;Left lateral chest wall pain Presentation: 08/14 00:51 Chief complaint: Patient states: cough for several days, wheezing that started today. as6 Coronavirus screen: At this time, the client does not indicate any symptoms associated with coronavirus-19. Ebola Screen: No symptoms or risks identified at this time. Initial Sepsis Screen: Does the patient meet any 2 criteria? No. Patient's initial sepsis screen is negative. Does the patient have a suspected source of infection? No. Patient's initial sepsis screen is negative. Risk Assessment: Do you want to hurt yourself or someone else? Patient reports no desire to harm self or others. Onset of symptoms was August 14, 2023. 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 - Social history:: Smoking status: Patient denies any tobacco usage or history of. - Family history:: not pertinent. Screenin:00 [facility] ED Fall Risk Assessment (Adult) History of falling in the last 3 months, pf1 including since admission No falls in past 3 months (0 pts) Confusion or Disorientation No (0 pts) Intoxicated or Sedated No (0 pts) Impaired Gait No (0 pts) Mobility Assist Device Used No (0 pt) Altered Elimination No (0 pt) Score/Fall Risk Level 0 - 2 = Low Risk Oriented to surroundings, Maintained a safe environment, Educated pt \T\ family on fall prevention, incl call for assistance when getting out of bed, Assessed \T\ reinforced patient's understanding of fall precautions, Provided non-skid footwear, Hourly rounding (assess needs \T\ fall precautionary measures) done, Used ambulatory aids as needed (educated on \T\ assisted with), Used gait belt as appropriate. 01:00 Abuse screen: Denies threats or abuse. Nutritional screening: No deficits noted. pf1 Tuberculosis screening: No symptoms or risk factors identified. Assessment: 01:00 General: Appears in no apparent distress. comfortable, well groomed, well developed, pf1 Behavior is calm, cooperative, appropriate for age, quiet. Pain: Complains of pain in left lower ribcage pain that radiates to back,onset 4 days ago Pain currently is 4 out of 10 on a pain scale. 01:00 Neuro: No deficits noted. Level of Consciousness is awake, alert, obeys commands, pf1 Oriented to person, place, time, situation. Cardiovascular: No deficits noted. Capillary refill < 3 seconds Patient's skin is warm and dry. Respiratory: Airway is patent Respiratory effort is even, unlabored, Respiratory pattern is Parent/caregiver reports the patient having shortness of breath cough that is pain with cough since 4days with wheezing,onset today. GI: No deficits noted. No signs and/or symptoms were reported involving the gastrointestinal system. : No deficits noted. No signs and/or symptoms were reported regarding the genitourinary system. EENT: No deficits noted. No signs and/or symptoms were reported regarding the EENT system. Derm: No deficits noted. No signs and/or symptoms reported regarding the dermatologic system. 02:00 Reassessment: Patient appears in no apparent distress at this time. Patient and/or pf1 family updated on plan of care and expected duration. Pain level reassessed. Patient is alert, oriented x 3, equal unlabored respirations, skin warm/dry/pink. Patient states feeling better. Patient states symptoms have improved. 03:00 Reassessment: Patient appears in no apparent distress at this time. Patient and/or pf1 family updated on plan of care and expected duration. Pain level reassessed. Patient is alert, oriented x 3, equal unlabored respirations, skin warm/dry/pink. Patient states feeling better. Patient states symptoms have improved. 04:00 Reassessment: Patient appears in no apparent distress at this time. Patient and/or pf1 family updated on plan of care and expected duration. Pain level reassessed. Patient is alert, oriented x 3, equal unlabored respirations, skin warm/dry/pink. Patient states feeling better. Patient states symptoms have improved. 04:50 Reassessment: Patient appears in no apparent distress at this time. Patient and/or pf1 family updated on plan of care and expected duration. Pain level reassessed. Patient is alert, oriented x 3, equal unlabored respirations, skin warm/dry/pink. Patient denies pain at this time. Patient states feeling better. Patient states symptoms have improved. 05:13 Reassessment: Patient appears in no apparent distress at this time. Patient and/or pf1 family updated on plan of care and expected duration. Pain level reassessed. Patient is alert, oriented x 3, equal unlabored respirations, skin warm/dry/pink. Patient denies pain at this time. Patient states feeling better. Patient states symptoms have improved. Vital Signs: 00:50 BP 147 / 88; Pulse 75; Resp 18; Temp 98.8; Pulse Ox 99% ; Weight 107.95 kg; Height 5 as6 ft. 2 in. ; Pain 4/10; 02:00 BP 131 / 79; Pulse 58; Resp 16; Pulse Ox 98% on R/A; pf1 03:00 BP 131 / 90; Pulse 58; Resp 16; Pulse Ox 99% on R/A; pf1 04:00 BP 130 / 88; Pulse 56; Resp 16; Pulse Ox 97% on R/A; Pain 4/10; pf1 05:14 BP 118 / 75; Pulse 57; Resp 18; Pulse Ox 99% on R/A; Pain 0/10; pf1 00:50 Body Mass Index 43.53 (107.95 kg, 157.48 cm) as6 00:50 Pain Scale: Adult as6 04:00 Pain Scale: Adult pf1 05:14 Pain Scale: Adult pf1 ED Course: 00:38 Patient arrived in ED. mr 00:39 Harsh Valera MD is Private Physician. mr 00:50 Augusto Haney MD is Attending Physician. sp4 00:50 Arm band placed on. as6 00:52 Triage completed. as6 01:00 Patient has correct armband on for positive identification. Bed in low position. Call pf1 light in reach. 01:15 No provider procedures requiring assistance completed. Inserted saline lock: 22 gauge pf1 in left antecubital area, using aseptic technique. Blood collected. 02:47 CT Chest W/ Con In Process Unspecified. EDMS 05:25 Provided Education on: medication administration. pf1 05:25 IV discontinued, intact, bleeding controlled, No redness/swelling at site. Pressure pf1 dressing applied. Administered Medications: 02:00 Drug: Ketorolac IVP 30 mg IVP once Route: IVP; Site: left antecubital; pf1 03:00 Follow up: Response: No adverse reaction; Marked relief of symptoms; Pain is decreased pf1 03:30 Drug: NS 0.9% IV 1000 ml IV at 1 bolus Per protocol; 1000 mL bolus Route: IV; Rate: 1 pf1 bolus; Site: left antecubital; 04:39 Follow up: Response: No adverse reaction; Marked relief of symptoms; IV Status: pf1 Completed infusion Medication: 05:26 VIS not applicable for this client. pf1 Outcome: 05:18 Discharge ordered by . sp4 05:25 Discharged to home ambulatory, pf1 05:25 Condition: improved 05:25 Discharge instructions given to patient, Instructed on discharge instructions, follow up and referral plans. Demonstrated understanding of instructions, follow-up care, 05:26 Patient left the ED. pf1 Signatures: Dispatcher [employer] EDMS Brenda Man, Reg Reg mr Jan Lee RN RN as6 Eula Lang RN RN pf1 Augusto Haney MD MD sp4
--- NOTE | 2023-08-14 05:18 | EDPHYS ---
Physician Documentation [facility] Name: Sherron Arita Age: 43 yrs Sex: Female : 1980 Arrival Date: 08/14/2023 Time: 00:36 Bed 13 Private MD: Harsh Valera ED Physician Augusto Haney HPI: 08/14 00:59 This 43 yrs old Female presents to ER via Ambulatory with complaints of sp4 Abdominal Pain, Shortness Of Breath. 00:59 Chest pain for 4 days. . sp4 05:15 Patient presents with left lateral chest pain for the past 4 days. Patient was seen at sp4 [facility] and was given a chest x-ray which turned out to be normal. Patient states left lateral pain is well worse and she desires additional test. 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 - Social history:: Smoking status: Patient denies any tobacco usage or history of. - Family history:: not pertinent. ROS: 05:15 Constitutional: Negative for fever, chills, and weight loss, Cardiovascular: Negative sp4 for palpitations, and edema, positive for left lateral chest pain positive positive for pain with movement 05:15 All other systems are negative, Exam: 05:09 ECG was reviewed by the Attending Physician. There is EKG at 0 229. Normal sinus sp4 rhythm, normal EKG, no active ectopy 05:15 Constitutional: This is a well developed, well nourished patient who is awake, alert, sp4 and in no acute distress. Head/Face: Normocephalic, atraumatic. Eyes: Pupils equal round and reactive to light, extra-ocular motions intact. Lids and lashes normal. Conjunctiva and sclera are not injected. Cornea within normal limits. Periorbital areas with no swelling, redness, or edema. ENT: Nares patent. No nasal discharge, no septal abnormalities noted. Tympanic membranes are normal and external auditory canals are clear. Oropharynx with no redness, swelling, or masses, exudates, or evidence of obstruction, uvula midline. Mucous membranes moist. Neck: Trachea midline, no thyromegaly or masses palpated, and no cervical lymphadenopathy. Supple, full range of motion without nuchal rigidity, or vertebral point tenderness. Chest/axilla: Normal chest wall appearance and motion. Nontender with no deformity. No lesions are appreciated. Cardiovascular: Regular rate and rhythm with a normal S1 and S2. No gallops, murmurs, or rubs. Normal PMI, no JVD. No pulse deficits. Respiratory: Lungs have equal breath sounds bilaterally, clear to auscultation and percussion. No rales, rhonchi or wheezes noted. No increased work of breathing, no retractions or nasal flaring. Abdomen/GI: Soft, non-tender, with normal bowel sounds. No distension or tympany. No guarding or rebound. No evidence of tenderness throughout. Back: No spinal tenderness. No costovertebral tenderness. Skin: Warm, dry with normal turgor. Normal color with no rashes, no lesions, and no evidence of cellulitis. MS/ Extremity: Pulses equal, no cyanosis. Neurovascular intact. Full, normal range of motion. Neuro: Awake and alert, GCS 15, oriented to person, place, time, and situation. Cranial nerves II-XII grossly intact. Motor strength 5/5 in all extremities. Sensory grossly intact. Psych: Awake, alert, with orientation to person, place and time. Behavior, mood, and affect are within normal limits Vital Signs: 00:50 BP 147 / 88; Pulse 75; Resp 18; Temp 98.8; Pulse Ox 99% ; Weight 107.95 kg; Height 5 as6 ft. 2 in. ; Pain 4/10; 02:00 BP 131 / 79; Pulse 58; Resp 16; Pulse Ox 98% on R/A; pf1 03:00 BP 131 / 90; Pulse 58; Resp 16; Pulse Ox 99% on R/A; pf1 04:00 BP 130 / 88; Pulse 56; Resp 16; Pulse Ox 97% on R/A; Pain 4/10; pf1 05:14 BP 118 / 75; Pulse 57; Resp 18; Pulse Ox 99% on R/A; Pain 0/10; pf1 00:50 Body Mass Index 43.53 (107.95 kg, 157.48 cm) as6 00:50 Pain Scale: Adult as6 04:00 Pain Scale: Adult pf1 05:14 Pain Scale: Adult pf1 MDM: 00:59 Patient medically screened. sp4 05:09 ED course: CT CHEST: Lungs:The lungs are well expanded and are clear. There is no sp4 evidence of a pneumothorax. There are no pleural effusions. The central airways are patent. Heart: The heart is normal in size. There is no pericardial effusion. Mediastinum:The mediastinum is unremarkable. The mediastinal vessels are normal in caliber and contour. Bones:No acute osseous abnormalities are identified. Soft tissues:No focal soft tissue abnormalities are identified. Lymphadenopathy: No pathologic hilar, mediastinal or axillary lymphadenopathy is identified. Upper abdomen: No acute abnormalities are identified. IMPRESSION: No evidence of acute intrathoracic disease. . 05:15 Differential diagnosis: Anxiety Reaction asthma, Bronchitis pneumonia, Pneumothorax sp4 Psychogenic. Data reviewed: vital signs, nurses notes, old medical records, lab test result(s), EKG, radiologic studies, CT scan. ED course: CT chest is normal today, EKG normal today work-up is essentially normal . Patient was advised to take ibuprofen [id number] as needed for left lateral chest wall pain. 08/14 00:50 Order name: CBC with Diff; Complete Time: 05:08 4 08/14 00:50 Order name: CMP; Complete Time: 05:08 sp4 08/14 00:50 Order name: Lipase; Complete Time: 05:08 4 08/14 00:50 Order name: Test, Urine; Complete Time: 05:08 4 08/14 00:50 Order name: Urinalysis w/ reflexes; Complete Time: 05:08 sp4 08/14 00:58 Order name: SARS RAPID; Complete Time: 05:08 sp4 08/14 00:59 Order name: Influenza Screen (a \T\ B); Complete Time: 05:08 4 08/14 02:14 Order name: Troponin High Sensitivity; Complete Time: 05:08 EDRI 08/14 02:14 Order name: NT PRO-BNP; Complete Time: 05:08 EDRI 08/14 02:14 Order name: C-Reactive Protein; Complete Time: 05:08 [facility] 08/14 00:58 Order name: CT Chest W/ Con sp4 08/14 00:58 Order name: EKG; Complete Time: 00:58 sp4 08/14 00:50 Order name: IV Saline Lock; Complete Time: 03:18 sp4 08/14 00:50 Order name: Labs collected and sent; Complete Time: 03:18 sp4 08/14 00:58 Order name: EKG - Nurse/Tech; Complete Time: 03:18 sp4 EC:09 Rate is 62 beats/min. Rhythm is regular, Normal Sinus Rhythm. QRS [place] is Normal. CO sp4 interval is normal. QRS interval is normal. QT interval is normal. No Q waves. T waves are Normal. No ST changes noted. Clinical impression: Normal ECG. Interpreted by me. Administered Medications: 02:00 Drug: Ketorolac IVP 30 mg IVP once Route: IVP; Site: left antecubital; pf1 03:00 Follow up: Response: No adverse reaction; Marked relief of symptoms; Pain is decreased pf1 03:30 Drug: NS 0.9% IV 1000 ml IV at 1 bolus Per protocol; 1000 mL bolus Route: IV; Rate: 1 pf1 bolus; Site: left antecubital; 04:39 Follow up: Response: No adverse reaction; Marked relief of symptoms; IV Status: pf1 Completed infusion Disposition Summary: 08/14/23 05:18 Discharge Ordered Notes: Location: Home sp4 Problem: new sp4 Symptoms: have improved sp4 Condition: Stable sp4 Diagnosis - Chest pain, unspecified sp4 - Left lateral chest wall pain sp4 Followup: sp4 - With: Private Physician - When: 7 - 10 days - Reason: Recheck today's complaints Discharge Instructions: - Discharge Summary Sheet sp4 - Nonspecific Chest Pain, Adult, [id number] sp4 Forms: - Patient Portal Instructions sp4 Signatures: Dispatcher [employer] EDJan Coley RN RN as6 Eula Lang RN RN pf1 Augusto Haney MD MD sp4 Corrections: (The following items were deleted from the chart) 02:14 00:58 Influenza Screen (A \T\ B)+BA.LAB.BRZ ordered. EDMS EDMS 02:14 00:59 Troponin High Sensitivity+C.LAB.BRZ ordered. EDMS EDMS 02:14 00:59 PROBNP+C.LAB.BRZ ordered. EDMS EDMS 02:14 00:59 C-REACTIVE PROTEIN+C.LAB.BRZ ordered. EDMS EDMS
[2023-08-14 05:36] VITALS: TEMP 98.8
[2023-08-14 06:08] VITALS: BP 118/75; O2SAT 99
--- NOTE | 2023-08-14 15:47 | RAD REPORT ---
EXAM DESCRIPTION: CT - Thorax W/ Con - 08/14/2023 7:06 am CLINICAL HISTORY: 43 years Female CHEST PAIN TECHNIQUE: Axial CT imaging of the chest was performed following the administration of intraveno us contrast. Sagittal and coronal reconstructed images were then performed. The CT study is performed according to ALARA (as low as reasonably achievable) or ALARA/IMAGE GENTLY, with automatic adjustmen t of mA and/or kV according to patient size. Performed on: 08/14/2023 at 2:40 AM COMPARISON: CT chest performed on 09/14/[address] chest report from 12/19/2022. The images from thi s study were unavailable for review FINDINGS: CT CHEST: Lungs: The lungs are well expanded and are clear. There is no evidence of a pneumothorax. There are n o pleural effusions. The central airways are patent. Heart: The heart is normal in size. There is no pericardial effusion. Mediastinum: The mediastinum is unremarkable. The mediastinal vessels are normal in caliber and con tour. Bones: No acute osseous abnormalities are identified. Soft tissues: No focal soft tissue abnormalities are identified. Lymphadenopathy: No pathologic hilar, mediastinal or axillary lymphadenopathy is identified. Upper abdomen: No acute abnormalities are identified. IMPRESSION: No evidence of acute intrathoracic disease. Electronically signed by: Kayli Tran DO 08/14/2023 4:23 AM CDT Due to temporary technical issues with the PACS/Fluency reporting system, reports are being signed by the in house radiologists without review as a courtesy to insure prompt reporting. The interpreting radiologist is fully responsible for the content of the report.
--- NOTE | 2023-08-15 14:37 | EKG ---
Test Date: 2023-08-14 Test Time: 02:29:27 Animal Geneticist: EMORY MEASUREMENT RESULTS: Intervals: Rate: 62 SC: 158 QRSD: 74 QT: 418 QTc: 424 Ford: P: 39 SC: 158 QRS: 8 T: 23 INTERPRETIVE STATEMENTS: Normal sinus rhythm with sinus arrhythmia Normal ECG Compared to ECG 07/31/2019 16:56:38 No significant changes Electronically Signed On 08-15-23 14:32:53 CDT by Vikas Greenfield
== END 2023-08-14 05:26 | disposition home or self-care (01) ==
LOC: ER 00:36
DX: R07.89 Other chest pain (principal); I10 Essential (primary) hypertension; Z20.822 Contact with and (suspected) exposure to COVID-19
CPT/HCPCS: 93005; 85025; 81001; 36415; 81025; 84484; 83690; 80053; 83880; 86140; 87804 ×2; 71260; 87811; Q9967; J7030; J7040